=== PATIENT | female | born 1965 | race American Indian/Alaskan Native ===

== ENCOUNTER 2017-09-12 20:03 | Emergency (ER) | payer MEDICARE ==
[2017-09-13] MEDS ORDERED: TYLENOL PO ONE (01:50)
[2017-09-13] MEDS ORDERED: TYLENOL ONE (01:51)
[2017-09-13] MEDS ORDERED: FLEXERIL PO ONE (03:48)
--- NOTE | 2017-09-13 04:08 | Emergency Department Report ---
HPI - General Chief Complaint: Fall Time Seen by Provider: 09/13/17 03:32 - HPI HPI: Patient is a 51-year-old female who presents to ED complaining of headache and right shoulder pain from fall that happened on Tuesday afternoon while she was at [facility]. Patient states she fell and hit her head on a metal object which she can't recall. Patient states she is is that she is has intermittent headache. Patient states she does not think she had loss of consciousness. Patient states she try to break her fall with her right side and is experiencing some right shoulder pain, aching and throbbing in nature, nonradiating. Patient denies fevers/chills/blurry vision/shortness of breath ED Past Medical Hx - Past Medical History Hx Hypertension: Yes Hx Congestive Heart Failure: No Hx Diabetes: No Hx Asthma: No Hx COPD: No Additional medical history: menopause, bilateral hearing loss. pt uses hearing aid - Surgical History Additional Surgical History: uterine ablation 04/2010 - Social History Smoking Status: Never Smoker Substance Use Type: Alcohol - Medications Home Medications: Home Medications Medication Instructions Recorded Confirmed Last Taken Type Aspirin [Aspirin BABY CHEW TAB] 81 mg PO QDAY #30 tab.chew 07/08/17 Unknown Rx Lisinopril [Zestril TAB] 20 mg PO QDAY #30 tablet 07/08/17 Unknown Rx Cyclobenzaprine [Flexeril] 10 mg PO QHS #20 tablet 09/13/17 Unknown Rx Naproxen [Naprosyn] 500 mg PO BID #30 tablet 09/13/17 Unknown Rx ED Review of Systems ROS: Stated complaint: FALL Other details as noted in HPI Constitutional: denies: chills, fever Eyes: denies: eye pain, eye discharge, vision change ENT: denies: ear pain, throat pain, dental pain, hearing loss, congestion Respiratory: denies: cough, shortness of breath, wheezing Cardiovascular: denies: chest pain, palpitations Endocrine: no symptoms reported Gastrointestinal: denies: abdominal pain, nausea, diarrhea, constipation Genitourinary: denies: urgency, dysuria, frequency, discharge Musculoskeletal: arthralgia, myalgia. denies: back pain, joint swelling Skin: denies: rash, lesions Neurological: headache. denies: weakness, numbness, paresthesias, confusion Psychiatric: denies: anxiety, depression Hematological/Lymphatic: denies: easy bleeding, easy bruising Physical Exam - Physical Exam Vital Signs: Vital Signs 09/12/17 22:38 Temperature 97.4 F L Pulse Rate 72 Respiratory 16 Rate Blood Pressure 138/78 O2 Sat by Pulse 98 Oximetry Physical Exam: GENERAL: Alert and oriented x3, no apparent distress, Normal Gait, atraumatic. HEAD: Head is normocephalic and a-traumatic. EYES: Extra ocular muscles are intact. Pupils are equal, round, and reactive to light and accommodation. NECK: Supple. Non edematous, No lymphadenopathy or thyromegaly. No C-spine tenderness LUNGS: Symetrical with respiration, No wheezing, no rales or crackles, CTAB. HEART: S1, S2 present, regular rate and rhythm without murmur, no rubs, no gallops. Non tender to palpation BACK: Full range of motion, no spinal tenderness, nontender to palpation. EXTREMITIES/MUSCULOSKELETAL: No cyanosis, clubbing, rash, lesions or edema. Full ROM bilaterally. UE/LE Pulses 2+ bilaterally. LE and UE 5+ strength bilaterally, right shoulder shows no deformity, non-erythematous, mild tenderness to palpation of the posterior shoulder muscle NEUROLOGIC: The patient is cooperative with no focal neurologic deficits. Cranial nerves II through XII are grossly intact. Normal speech. Normal sensation in bilateral upper and lower extremities, No loss of sensation, SKIN: Warm and dry, No lesions, No ulceration or induration present. ED Course Vital Signs 09/12/17 22:38 Temperature 97.4 F L Pulse Rate 72 Respiratory 16 Rate Blood Pressure 138/78 O2 Sat by Pulse 98 Oximetry ED Medical Decision Making - Radiology Data Radiology results: report reviewed, image reviewed FINAL REPORT EXAM: XR SHOULDER 2+V RT HISTORY: fall/right shoulder pain TECHNIQUE: Three views of the right shoulder were submitted. FINDINGS: The glenohumeral and AC joints appear intact. The subacromial space appears normal. There is no evidence of fracture. IMPRESSION: Within normal limits. Transcribed By: RB Dictated By: STANISLAW ZALDIVAR MD Electronically Authenticated By: STANISLAW ZALDIVAR MD Signed Date/Time: 09/13/17 0018 FINAL REPORT EXAM: CT HEAD/BRAIN WO CON HISTORY: headache/loc after fall TECHNIQUE: Routine axial imaging was obtained of the brain without IV contrast. FINDINGS: The ventricular system is appropriate in size and is symmetric. There is no evidence of acute stroke or hemorrhage. The basal cisterns appear normal. The visualized sinuses are clear. The mastoid air cells are well pneumatized. The calvarium appears intact IMPRESSION: Within normal limits Transcribed By: RB Dictated By: STANISLAW ZALDIVAR MD Electronically Authenticated By: STANISLAW ZALDIVAR MD Signed Date/Time: 09/13/17 0020 - Medical Decision Making 51-year-old female presents status post fall ED course: CT of the head, x-ray of the right shoulder ordered. Gen. just has shows no abnormalities I discussed findings with the patient. I discussed the patient follow up with primary care physician. ED course: Patient received Tylenol and Flexeril in ED. Vital signs are normal patient is in no acute distress Discussed with patient follow-up with primary care physician. Discussed the patient and take medications as prescribed. Patient has no neurological deficit. Patient is alert and oriented 3 and understands all instructions given. Discussed drowsiness effect of Flexeril makes her drowsy and not to operate machinery while taking flexeril Critical care attestation.: If time is entered above; I have spent that time in minutes in the direct care of this critically ill patient, excluding procedure time. ED Disposition Clinical Impression: Myalgia Fall Qualifiers: Encounter type: initial encounter Qualified Code(s): W19.XXXA - Unspecified fall, initial encounter Shoulder pain, right Qualifiers: Chronicity: acute Qualified Code(s): M25.511 - Pain in right shoulder Arthralgia Qualifiers: Joint pain location: shoulder Laterality: right Qualified Code(s): M25.511 - Pain in right shoulder Disposition: - TO HOME OR SELFCARE Is pt being admited?: No Does the pt Need Aspirin: No Condition: Stable Instructions: Fall Prevention (ED), Trigger Point Pain (ED), Musculoskeletal Pain (ED), Heat Pack Application (ED) Additional Instructions: Make sure to follow up with the primary care physician as discussed. Take all your medications as you've been prescribed. If you have any worsening symptoms or develop new symptoms please return to ED immediately. Prescriptions: Cyclobenzaprine [Flexeril] 10 mg PO QHS #20 tablet Naproxen [Naprosyn] 500 mg PO BID #30 tablet Referrals: PRIMARY MD MARNIE [Primary Care Provider] - 3-5 Days [facility] [Outside] - 3-5 Days [facility] [Outside] - 3-5 Days [facility] [Outside] - 3-5 Days Forms: Accompanied Note, Work/School Release Form(ED) Time of Disposition: 04:40
--- NOTE | 2017-09-13 04:21 | XRay Report ---
FINAL REPORT EXAM: XR SHOULDER 2+V RT HISTORY: fall/right shoulder pain TECHNIQUE: Three views of the right shoulder were submitted. FINDINGS: The glenohumeral and AC joints appear intact. The subacromial space appears normal. There is no evidence of fracture. IMPRESSION: Within normal limits.
--- NOTE | 2017-09-13 04:24 | Cat Scan Report ---
FINAL REPORT EXAM: CT HEAD/BRAIN WO CON HISTORY: headache/loc after fall TECHNIQUE: Routine axial imaging was obtained of the brain without IV contrast. FINDINGS: The ventricular system is appropriate in size and is symmetric. There is no evidence of acute stroke or hemorrhage. The basal cisterns appear normal. The visualized sinuses are clear. The mastoid air cells are well pneumatized. The calvarium appears intact IMPRESSION: Within normal limits
[2017-09-13 05:36] VITALS: BP 146/91
== END 2017-09-13 05:05 | disposition home or self-care (01) ==
LOC: ED 20:03
DX: M25.511 Pain in right shoulder (principal); M79.1 Myalgia; I10 Essential (primary) hypertension
CPT/HCPCS: 70450

== ENCOUNTER 2017-11-18 22:26 | Emergency (ER) | payer MEDICARE ==
[2017-11-18] MEDS ORDERED: ASPIRIN PO ONE (22:46)
[2017-11-18 23:15] LABS: Basophils # (Auto) 0.1 K/mm3 (0.0-0.1); Basophils % (Auto) 1.2 % (0.0-1.8); Eosinophils # (Auto) 0.2 K/mm3 (0.0-0.4); Eosinophils % (Auto) 2.2 % (0.0-4.3); Hematocrit 49.3 % (30.3-42.9); Hemoglobin 16.1 gm/dl (10.1-14.3); Lymphocytes # (Auto) 3.5 K/mm3 (1.2-5.4); Lymphocytes % (Auto) 46.7 % (13.4-35.0); Mean Corpuscular HGB Conc 33 % (30-34); Mean Corpuscular Hemoglobin 32 pg (28-32); Mean Corpuscular Volume 99 fl (79-97); Monocytes # (Auto) 0.8 K/mm3 (0.0-0.8); Monocytes % (Auto) 11.1 % (0.0-7.3); Platelet Count 293 K/mm3 (140-440); Red Blood Count 4.98 M/mm3 (3.65-5.03)
[2017-11-18 23:32] LABS: BUN/Creatinine Ratio 17; Blood Urea Nitrogen 15 mg/dL (7-17); Calcium 9.3 mg/dL (8.4-10.2); Hemolysis Index 12
--- NOTE | 2017-11-18 23:42 | XRay Report ---
FINAL REPORT EXAM: XR CHEST ROUTINE 2V HISTORY: SOB and cough TECHNIQUE: 2 views of the chest. PRIORS: None. FINDINGS: The cardiomediastinal silhouette appears normal. The lungs are clear. The bones and soft tissues are unremarkable. IMPRESSION: No evidence of acute cardiopulmonary disease
[2017-11-19] MEDS ORDERED: NORCO 5/325 PO ONE ×2 (02:15→04:01)
--- NOTE | 2017-11-19 02:17 | Emergency Department Report ---
ED Chest Pain HPI - General Chief Complaint: Chest Pain Stated Complaint: CHEST PAIN/HTN/ARM PAIN/ADAMS Time Seen by Provider: 11/19/17 02:09 Source: patient Mode of arrival: Ambulatory Limitations: No Limitations - History of Present Illness Initial Comments: Patient is a 51-year-old [place] female who is presenting with chest pain. Patient states she is has had chest pain or difficulty breathing for the past 2 days. Patient states is worse at night when she is lying flat. Patient states during the day when she is up and about us not gone however she says this as best of 3 out of 10 at worst a 7 out of 10 in severity. Patient states as a heavy sensation and tightness. Patient also states she's had a nonproductive cough the same amount of time. Patient has a history of smoking and hypertension. Patient states it does hurt when she agrees slightly. Patient denies any nausea vomiting diaphoresis abdominal pain at this time. - Related Data Previous Rx's Medication Instructions Recorded Last Taken Type Aspirin [Aspirin BABY CHEW TAB] 81 mg PO QDAY #30 tab.chew 07/08/17 Unknown Rx Lisinopril [Zestril TAB] 20 mg PO QDAY #30 tablet 07/08/17 Unknown Rx Cyclobenzaprine [Flexeril] 10 mg PO QHS #20 tablet 09/13/17 Unknown Rx Naproxen [Naprosyn] 500 mg PO BID #30 tablet 09/13/17 Unknown Rx ALBUTEROL Inhaler [ProAir HFA 2 puff IH QID PRN #1 inhalation 11/19/17 Unknown Rx Inhaler] Azithromycin [Zithromax Z-GLENROY] 250 mg PO DAILY #6 tablet 11/19/17 Unknown Rx HYDROcodone/APAP 5-325 [Massena 1 each PO Q4HR PRN #12 tablet 11/19/17 Unknown Rx 5/325] Ibuprofen [Motrin] 600 mg PO Q8H PRN #20 tablet 11/19/17 Unknown Rx predniSONE [Deltasone] 10 mg PO QDAY #5 tab 11/19/17 Unknown Rx Allergies Allergy/AdvReac Type Severity Reaction Status Date / Time No Known Allergies Allergy Verified 12/29/15 19:15 Heart Score - HEART Score History: Slightly suspicious EKG: Non-specific Age: 45-65 Risk factors: > 3 risk factors or hx of atherosclerotic disease Troponin: < normal limit HEART Score: 4 ED Review of Systems ROS: Stated complaint: CHEST PAIN/HTN/ARM PAIN/ADAMS Other details as noted in HPI Comment: All other systems reviewed and negative ED Past Medical Hx - Past Medical History Hx Hypertension: Yes Hx Congestive Heart Failure: No Hx Diabetes: No Hx Asthma: No Hx COPD: No Additional medical history: menopause, bilateral hearing loss. pt uses hearing aid - Surgical History Additional Surgical History: uterine ablation 04/2010 - Social History Smoking Status: Current Every Day Smoker Substance Use Type: None - Medications Home Medications: Home Medications Medication Instructions Recorded Confirmed Last Taken Type Aspirin [Aspirin BABY CHEW TAB] 81 mg PO QDAY #30 tab.chew 07/08/17 Unknown Rx Lisinopril [Zestril TAB] 20 mg PO QDAY #30 tablet 07/08/17 Unknown Rx Cyclobenzaprine [Flexeril] 10 mg PO QHS #20 tablet 09/13/17 Unknown Rx Naproxen [Naprosyn] 500 mg PO BID #30 tablet 09/13/17 Unknown Rx ALBUTEROL Inhaler [ProAir HFA 2 puff IH QID PRN #1 inhalation 11/19/17 Unknown Rx Inhaler] Azithromycin [Zithromax Z-GLENROY] 250 mg PO DAILY #6 tablet 11/19/17 Unknown Rx HYDROcodone/APAP 5-325 [Massena 1 each PO Q4HR PRN #12 tablet 11/19/17 Unknown Rx 5/325] Ibuprofen [Motrin] 600 mg PO Q8H PRN #20 tablet 11/19/17 Unknown Rx predniSONE [Deltasone] 10 mg PO QDAY #5 tab 11/19/17 Unknown Rx ED Physical Exam - General Limitations: No Limitations General appearance: alert, in no apparent distress - Head Head exam: Present: atraumatic, normocephalic - Eye Eye exam: Present: normal appearance - ENT ENT exam: Present: mucous membranes moist - Neck Neck exam: Present: normal inspection - Respiratory Respiratory exam: Present: normal lung sounds bilaterally. Absent: respiratory distress, wheezes, rales, rhonchi - Cardiovascular Cardiovascular Exam: Present: regular rate, normal rhythm. Absent: systolic murmur, diastolic murmur, rubs, gallop - GI/Abdominal GI/Abdominal exam: Present: soft, normal bowel sounds. Absent: distended, tenderness, guarding - Extremities Exam Extremities exam: Present: normal inspection - Back Exam Back exam: Present: normal inspection - Neurological Exam Neurological exam: Present: alert, oriented X3 - Psychiatric Psychiatric exam: Present: normal affect, normal mood - Skin Skin exam: Present: warm, dry, intact, normal color. Absent: rash ED Course Vital Signs 11/18/17 11/19/17 11/19/17 22:41 01:58 02:00 Temperature 97.6 F Pulse Rate 62 55 L Respiratory 18 25 H Rate Blood Pressure 145/82 130/86 119/85 Blood Pressure [Left] O2 Sat by Pulse 98 97 Oximetry 11/19/17 11/19/17 11/19/17 02:10 02:15 02:20 Temperature 98.1 F Pulse Rate 53 L Respiratory 21 14 21 Rate Blood Pressure 119/85 Blood Pressure 130/86 [Left] O2 Sat by Pulse 98 97 Oximetry 11/19/17 11/19/17 11/19/17 02:29 02:30 02:45 Temperature Pulse Rate 56 L 54 L 51 L Respiratory 25 H 17 Rate Blood Pressure 128/81 128/81 Blood Pressure [Left] O2 Sat by Pulse 91 96 Oximetry 11/19/17 11/19/17 11/19/17 03:00 03:15 03:30 Temperature Pulse Rate 52 L 52 L 49 L Respiratory 24 22 15 Rate Blood Pressure 134/84 134/84 118/80 Blood Pressure [Left] O2 Sat by Pulse 100 94 92 Oximetry ED Medical Decision Making - Lab Data Result diagrams: 11/18/17 22:56 11/18/17 22:56 Lab Results 11/18/17 11/18/17 11/19/17 Range/Units 22:56 22:56 01:45 WBC 7.4 (4.5-11.0) K/mm3 RBC 4.98 (3.65-5.03) M/mm3 Hgb 16.1 H (10.1-14.3) gm/dl Hct 49.3 H (30.3-42.9) % MCV 99 H (79-97) fl MCH 32 (28-32) pg MCHC 33 (30-34) % RDW 15.0 (13.2-15.2) % Plt Count 293 (140-440) K/mm3 Lymph % (Auto) 46.7 H (13.4-35.0) % [place] % (Auto) 11.1 H (0.0-7.3) % Eos % (Auto) 2.2 (0.0-4.3) % Baso % (Auto) 1.2 (0.0-1.8) % Lymph # 3.5 (1.2-5.4) K/mm3 [place] # 0.8 (0.0-0.8) K/mm3 Eos # 0.2 (0.0-0.4) K/mm3 Baso # 0.1 (0.0-0.1) K/mm3 Seg Neutrophils % 38.8 L (40.0-70.0) % Seg Neutrophils # 2.9 (1.8-7.7) K/mm3 D-Dimer (0-234) ng/mlDDU Sodium 139 (137-145) mmol/L Potassium 4.4 (3.6-5.0) mmol/L Chloride 99.5 (98-107) mmol/L Carbon Dioxide 26 (22-30) mmol/L Anion Gap 18 mmol/L BUN 15 (7-17) mg/dL Creatinine 0.9 (0.7-1.2) mg/dL Estimated GFR > 60 ml/min BUN/Creatinine Ratio 17 % Glucose 129 H (65-100) mg/dL Calcium 9.3 (8.4-10.2) mg/dL Troponin T < 0.010 < 0.010 (0.00-0.029) ng/mL 11/19/17 Range/Units 02:29 WBC (4.5-11.0) K/mm3 RBC (3.65-5.03) M/mm3 Hgb (10.1-14.3) gm/dl Hct (30.3-42.9) % MCV (79-97) fl MCH (28-32) pg MCHC (30-34) % RDW (13.2-15.2) % Plt Count (140-440) K/mm3 Lymph % (Auto) (13.4-35.0) % [place] % (Auto) (0.0-7.3) % Eos % (Auto) (0.0-4.3) % Baso % (Auto) (0.0-1.8) % Lymph # (1.2-5.4) K/mm3 [place] # (0.0-0.8) K/mm3 Eos # (0.0-0.4) K/mm3 Baso # (0.0-0.1) K/mm3 Seg Neutrophils % (40.0-70.0) % Seg Neutrophils # (1.8-7.7) K/mm3 D-Dimer 189.04 (0-234) ng/mlDDU Sodium (137-145) mmol/L Potassium (3.6-5.0) mmol/L Chloride (98-107) mmol/L Carbon Dioxide (22-30) mmol/L Anion Gap mmol/L BUN (7-17) mg/dL Creatinine (0.7-1.2) mg/dL Estimated GFR ml/min BUN/Creatinine Ratio % Glucose (65-100) mg/dL Calcium (8.4-10.2) mg/dL Troponin T (0.00-0.029) ng/mL - EKG Data -: EKG Interpreted by Ar - EKG Data Interpretation: other (EKG shows sinus rhythm, rate of 61 axis normal intervals and normal there are T-wave inversions in lead 2V5 and some diffuse T-wave flattening. There is no ST segment elevation or depressions. Interpretation is 2235.) - Radiology Data Radiology results: report reviewed There is no acute process on her chest x-ray - Medical Decision Making Patient has had 2 negative troponins that are both 0. Patient d-dimer is within normal limits. Patient's states chest pains been the same time that her cough is present. Patient is a smoker most likely has a early smoker's bronchitis. Patient be started on meds and discharged home. Critical care attestation.: If time is entered above; I have spent that time in minutes in the direct care of this critically ill patient, excluding procedure time. ED Disposition Clinical Impression: Atypical chest pain, Acute bronchitis Disposition: DC-01 TO HOME OR SELFCARE Is pt being admited?: No Does the pt Need Aspirin: No Condition: Stable Instructions: Chest Pain (ED), Acute Bronchitis (ED) Referrals: IVETTE DRAKE MD [Primary Care Provider] - 3-5 Days
[2017-11-19 03:42] VITALS: BP 118/80
== END 2017-11-19 04:32 | disposition home or self-care (01) ==
LOC: ED 22:26
DX: J20.9 Acute bronchitis, unspecified (principal); I10 Essential (primary) hypertension; F17.200 Nicotine dependence, unspecified, uncomplicated
CPT/HCPCS: 36415; 71046; 80048; 84484; 85025; 85379; 93005; 93010

== ENCOUNTER 2018-02-09 12:17 | Outpatient (CLI) | payer MEDICARE ==
--- NOTE | 2018-02-09 13:30 | Cat Scan Report ---
CT chest with contrast: Cough. Following IV contrast administration and transverse images are obtained through the chest with coronal and sagittal 2-D reformatted images. There is no axillary, hilar, or mediastinal adenopathy appreciated. The central airways are patent and normal in position. No evidence of bronchiectasis. No endobronchial lesion identified. The thoracic aorta is normal in size and contour. The cardiac chambers appear normal. The lungs are clear. No nodule and no infiltrate noted. The pleural surfaces are smooth. Images of the upper abdomen appear normal. Impression: No pathology identified.
== END 2018-02-09 12:18 | disposition home or self-care (01) ==
LOC: CT 12:17
PROVIDERS: ATTEND Nurse Practitioner
DX: R05 Cough (principal); F17.210 Nicotine dependence, cigarettes, uncomplicated; I10 Essential (primary) hypertension; J18.9 Pneumonia, unspecified organism
CPT/HCPCS: 71260; Q9967

== ENCOUNTER 2018-05-24 12:38 | Emergency (ER) | payer MEDICARE ==
[2018-05-24 13:11] VITALS: BP 124/77
[2018-05-24 13:30] LABS: Basophils # (Auto) 0.1 K/mm3 (0.0-0.1); Basophils % (Auto) 1.4 % (0.0-1.8); Eosinophils # (Auto) 0.1 K/mm3 (0.0-0.4); Eosinophils % (Auto) 2.1 % (0.0-4.3); Hematocrit 43.8 % (30.3-42.9); Hemoglobin 15.1 gm/dl (10.1-14.3); Lymphocytes # (Auto) 3.2 K/mm3 (1.2-5.4); Lymphocytes % (Auto) 45.9 % (13.4-35.0); Mean Corpuscular HGB Conc 35 % (30-34); Mean Corpuscular Hemoglobin 33 pg (28-32); Mean Corpuscular Volume 94 fl (79-97); Monocytes # (Auto) 0.7 K/mm3 (0.0-0.8); Monocytes % (Auto) 10.2 % (0.0-7.3); Platelet Count 316 K/mm3 (140-440); Red Blood Count 4.66 M/mm3 (3.65-5.03); Red Cell Distribution Width 14.7 % (13.2-15.2)
[2018-05-24 13:37] LABS: INR 0.94 (0.87-1.13)
[2018-05-24 13:38] LABS: Partial Thromboplastin Time 25.3 Sec. (24.2-36.6)
[2018-05-24 13:50] LABS: BUN/Creatinine Ratio 20; Blood Urea Nitrogen 10 mg/dL (7-17); Calcium 9.3 mg/dL (8.4-10.2); Hemolysis Index 9
--- NOTE | 2018-05-24 17:03 | Emergency Department Report ---
ED General Adult HPI - General Chief complaint: Chest Pain Stated complaint: CHEST PAINS/ARM PAIN Time Seen by Provider: 05/24/18 16:45 Source: patient Mode of arrival: Ambulatory Limitations: No Limitations - History of Present Illness Initial comments: Patient is a 52-year-old female who is presenting with chest pain as well as a cough that is productive of yellow-green sputum. Patient states she's been coughing for approximately 2 weeks however her chest discomfort is been for the last 2 days. Patient states it hurts when she coughs. Patient has mild shortness of breath as well as headache. Patient has some mild nausea but no vomiting or diarrhea. - Related Data Previous Rx's Medication Instructions Recorded Last Taken Type Aspirin [Aspirin BABY CHEW TAB] 81 mg PO QDAY #30 tab.chew 07/08/17 Unknown Rx Lisinopril [Zestril TAB] 20 mg PO QDAY #30 tablet 07/08/17 Unknown Rx Cyclobenzaprine [Flexeril] 10 mg PO QHS #20 tablet 09/13/17 Unknown Rx Naproxen [Naprosyn] 500 mg PO BID #30 tablet 09/13/17 Unknown Rx ALBUTEROL Inhaler (OR & NICU) 2 puff IH QID PRN #1 inhalation 11/19/17 Unknown Rx [ProAir HFA Inhaler] Azithromycin [Zithromax Z-GLENROY] 250 mg PO DAILY #6 tablet 11/19/17 Unknown Rx HYDROcodone/APAP 5-325 [[place] 1 each PO Q4HR PRN #12 tablet 11/19/17 Unknown Rx 5/325] Ibuprofen [Motrin] 600 mg PO Q8H PRN #20 tablet 11/19/17 Unknown Rx predniSONE [Deltasone] 10 mg PO QDAY #5 tab 11/19/17 Unknown Rx ALBUTEROL Inhaler (OR & NICU) 2 puff IH QID PRN #1 inhalation 05/24/18 Unknown Rx [ProAir HFA Inhaler] Benzonatate [Tessalon Perles] 100 mg PO Q8HR #10 capsule 05/24/18 Unknown Rx Doxycycline [Vibramycin CAP] 100 mg PO Q12HR #14 capsule 05/24/18 Unknown Rx HYDROcodone/APAP 5-325 [[place] 1 each PO Q4HR PRN #12 tablet 05/24/18 Unknown Rx 5/325] predniSONE [Deltasone] 20 mg PO QDAY #5 tab 05/24/18 Unknown Rx Allergies Allergy/AdvReac Type Severity Reaction Status Date / Time No Known Allergies Allergy Verified 12/29/15 19:15 ED Review of Systems ROS: Stated complaint: CHEST PAINS/ARM PAIN Other details as noted in HPI Comment: All other systems reviewed and negative ED Past Medical Hx - Past Medical History Previous Medical History?: Yes Hx Hypertension: Yes Hx Congestive Heart Failure: No Hx Diabetes: No Hx Asthma: No Hx COPD: No Additional medical history: menopause, bilateral hearing loss. pt uses hearing aid - Surgical History Past Surgical History?: Yes Additional Surgical History: uterine ablation 04/2010 - Social History Smoking Status: Current Every Day Smoker Substance Use Type: Alcohol - Medications Home Medications: Home Medications Medication Instructions Recorded Confirmed Last Taken Type Aspirin [Aspirin BABY CHEW TAB] 81 mg PO QDAY #30 tab.chew 07/08/17 Unknown Rx Lisinopril [Zestril TAB] 20 mg PO QDAY #30 tablet 07/08/17 Unknown Rx Cyclobenzaprine [Flexeril] 10 mg PO QHS #20 tablet 09/13/17 Unknown Rx Naproxen [Naprosyn] 500 mg PO BID #30 tablet 09/13/17 Unknown Rx ALBUTEROL Inhaler (OR & NICU) 2 puff IH QID PRN #1 inhalation 11/19/17 Unknown Rx [ProAir HFA Inhaler] Azithromycin [Zithromax Z-GLENROY] 250 mg PO DAILY #6 tablet 11/19/17 Unknown Rx HYDROcodone/APAP 5-325 [[place] 1 each PO Q4HR PRN #12 tablet 11/19/17 Unknown Rx 5/325] Ibuprofen [Motrin] 600 mg PO Q8H PRN #20 tablet 11/19/17 Unknown Rx predniSONE [Deltasone] 10 mg PO QDAY #5 tab 11/19/17 Unknown Rx ALBUTEROL Inhaler (OR & NICU) 2 puff IH QID PRN #1 inhalation 05/24/18 Unknown Rx [ProAir HFA Inhaler] Benzonatate [Tessalon Perles] 100 mg PO Q8HR #10 capsule 05/24/18 Unknown Rx Doxycycline [Vibramycin CAP] 100 mg PO Q12HR #14 capsule 05/24/18 Unknown Rx HYDROcodone/APAP 5-325 [[place] 1 each PO Q4HR PRN #12 tablet 05/24/18 Unknown Rx 5/325] predniSONE [Deltasone] 20 mg PO QDAY #5 tab 05/24/18 Unknown Rx ED Physical Exam - General Limitations: No Limitations General appearance: alert, in no apparent distress - Head Head exam: Present: atraumatic, normocephalic - Eye Eye exam: Present: normal appearance - ENT ENT exam: Present: mucous membranes moist - Neck Neck exam: Present: normal inspection - Respiratory Respiratory exam: Present: normal lung sounds bilaterally. Absent: respiratory distress, wheezes, rales, rhonchi - Cardiovascular Cardiovascular Exam: Present: regular rate, normal rhythm. Absent: systolic murmur, diastolic murmur, rubs, gallop - GI/Abdominal GI/Abdominal exam: Present: soft, normal bowel sounds. Absent: distended, tenderness, guarding, rebound - Extremities Exam Extremities exam: Present: normal inspection - Back Exam Back exam: Present: normal inspection - Neurological Exam Neurological exam: Present: alert, oriented X3 - Psychiatric Psychiatric exam: Present: normal affect, normal mood - Skin Skin exam: Present: warm, dry, intact, normal color. Absent: rash ED Course Vital Signs 05/24/18 13:08 Temperature 98.6 F Pulse Rate 61 Respiratory 18 Rate Blood Pressure 124/77 O2 Sat by Pulse 100 Oximetry ED Medical Decision Making - Lab Data Result diagrams: 05/24/18 13:16 05/24/18 13:16 Lab Results 05/24/18 05/24/18 05/24/18 Range/Units 13:16 13:16 13:16 WBC 7.0 (4.5-11.0) K/mm3 RBC 4.66 (3.65-5.03) M/mm3 Hgb 15.1 H (10.1-14.3) gm/dl Hct 43.8 H (30.3-42.9) % MCV 94 (79-97) fl MCH 33 H (28-32) pg MCHC 35 H (30-34) % RDW 14.7 (13.2-15.2) % Plt Count 316 (140-440) K/mm3 Lymph % (Auto) 45.9 H (13.4-35.0) % [place] % (Auto) 10.2 H (0.0-7.3) % Eos % (Auto) 2.1 (0.0-4.3) % Baso % (Auto) 1.4 (0.0-1.8) % Lymph # 3.2 (1.2-5.4) K/mm3 [place] # 0.7 (0.0-0.8) K/mm3 Eos # 0.1 (0.0-0.4) K/mm3 Baso # 0.1 (0.0-0.1) K/mm3 Seg Neutrophils % 40.4 (40.0-70.0) % Seg Neutrophils # 2.8 (1.8-7.7) K/mm3 PT 13.1 (12.2-14.9) Sec. INR 0.94 (0.87-1.13) APTT 25.3 (24.2-36.6) Sec. Sodium 141 (137-145) mmol/L Potassium 3.9 (3.6-5.0) mmol/L Chloride 104.8 (98-107) mmol/L Carbon Dioxide 24 (22-30) mmol/L Anion Gap 16 mmol/L BUN 10 (7-17) mg/dL Creatinine 0.5 L (0.7-1.2) mg/dL Estimated GFR > 60 ml/min BUN/Creatinine Ratio 20 % Glucose 94 (65-100) mg/dL Calcium 9.3 (8.4-10.2) mg/dL Troponin T < 0.010 (0.00-0.029) ng/mL 05/24/18 Range/Units 15:39 WBC (4.5-11.0) K/mm3 RBC (3.65-5.03) M/mm3 Hgb (10.1-14.3) gm/dl Hct (30.3-42.9) % MCV (79-97) fl MCH (28-32) pg MCHC (30-34) % RDW (13.2-15.2) % Plt Count (140-440) K/mm3 Lymph % (Auto) (13.4-35.0) % [place] % (Auto) (0.0-7.3) % Eos % (Auto) (0.0-4.3) % Baso % (Auto) (0.0-1.8) % Lymph # (1.2-5.4) K/mm3 [place] # (0.0-0.8) K/mm3 Eos # (0.0-0.4) K/mm3 Baso # (0.0-0.1) K/mm3 Seg Neutrophils % (40.0-70.0) % Seg Neutrophils # (1.8-7.7) K/mm3 PT (12.2-14.9) Sec. INR (0.87-1.13) APTT (24.2-36.6) Sec. Sodium (137-145) mmol/L Potassium (3.6-5.0) mmol/L Chloride (98-107) mmol/L Carbon Dioxide (22-30) mmol/L Anion Gap mmol/L BUN (7-17) mg/dL Creatinine (0.7-1.2) mg/dL Estimated GFR ml/min BUN/Creatinine Ratio % Glucose (65-100) mg/dL Calcium (8.4-10.2) mg/dL Troponin T < 0.010 (0.00-0.029) ng/mL - EKG Data -: EKG Interpreted by Me - EKG Data 05/24/18 17:01 EKG performed via nurse protocol shows sinus bradycardia rate of 58 no axis normal and slight prolonged QT for the animals. Patient's has no ST segment elevations or depressions. Patient does have nonspecific T-wave changes. - Medical Decision Making Because the patient mentioned chest pain she was chest pain protocol via nursing staff. Patient's positive negative EKG shows some nonspecific changes. Patient's chest pain secondary to her cough. Patient is a smoker and we did discuss smoking cessation. Patient to be treated for bronchitis Critical care attestation.: If time is entered above; I have spent that time in minutes in the direct care of this critically ill patient, excluding procedure time. ED Disposition Clinical Impression: Acute bronchitis Qualifiers: Bronchitis organism: unspecified organism Qualified Code(s): J20.9 - Acute bronchitis, unspecified Disposition: DC-01 TO HOME OR SELFCARE Is pt being admited?: No Does the pt Need Aspirin: No Condition: Stable Instructions: Acute Bronchitis (ED) Referrals: PRIMARY CARE, [Primary Care Provider] - 3-5 Days Time of Disposition: 17:03
== END 2018-05-24 17:10 | disposition home or self-care (01) ==
LOC: ED 12:38
DX: J20.9 Acute bronchitis, unspecified (principal); I10 Essential (primary) hypertension; F17.200 Nicotine dependence, unspecified, uncomplicated
CPT/HCPCS: 36415; 80048; 84484; 85025; 85610; 85730; 93005; 93010

== ENCOUNTER 2018-11-08 09:35 | Outpatient (CLI) | payer MEDICARE ==
[2018-11-08 11:46] LABS: Alanine Aminotransferase 31 units/L (7-56); BUN/Creatinine Ratio 20; Blood Urea Nitrogen 12 mg/dL (7-17); Calcium 9.4 mg/dL (8.4-10.2); Chol/HDL Ratio 2.39 %; HDL Cholesterol 58 mg/dL (40-59); Hemolysis Index 6; LDL Cholesterol,Direct 78 mg/dL (50-130)
== END 2018-11-08 09:36 | disposition home or self-care (01) ==
LOC: LAB 09:35
PROVIDERS: ATTEND Internal Medicine
DX: I10 Essential (primary) hypertension (principal); E66.01 Morbid (severe) obesity due to excess calories; R73.9 Hyperglycemia, unspecified; R31.9 Hematuria, unspecified; Z87.891 Personal history of nicotine dependence
CPT/HCPCS: 36415; 80053; 80061; 82306; 82607; 83036

== ENCOUNTER 2019-01-08 20:24 | Observation (INO) | payer MEDICARE ==
--- NOTE | 2019-01-08 20:33 | Emergency Department Report ---
Blank Doc - Documentation Documentation: This is a 53-year-old female that presents with chest pain and SOB. This initial assessment/diagnostic orders/clinical plan/treatment(s) is/are subject to change based on patient's health status, clinical progression and re- assessment by fellow clinical providers in the ED. Further treatment and workup at subsequent clinical providers discretion. Patient/guardians urged not to elope from the ED as their condition may be serious if not clinically assessed and managed. Initial orders include: 1- Patient sent to MAIN ED for further evaluation and treatment 2- labs 3- CXR 4- EKG
[2019-01-08 21:09] LABS: Basophils # (Auto) 0.1 K/mm3 (0.0-0.1); Basophils % (Auto) 1.2 % (0.0-1.8); Eosinophils # (Auto) 0.1 K/mm3 (0.0-0.4); Eosinophils % (Auto) 0.8 % (0.0-4.3); Hematocrit 48.5 % (30.3-42.9); Hemoglobin 16.6 gm/dl (10.1-14.3); Lymphocytes % (Auto) 35.1 % (13.4-35.0); Mean Corpuscular HGB Conc 34 % (30-34); Mean Corpuscular Volume 97 fl (79-97); Monocytes % (Auto) 11.4 % (0.0-7.3); Platelet Count 264 K/mm3 (140-440); Red Blood Count 5.01 M/mm3 (3.65-5.03); Red Cell Distribution Width 14.9 % (13.2-15.2)
[2019-01-08 21:18] LABS: INR 0.91 (0.87-1.13)
[2019-01-08 21:36] LABS: BUN/Creatinine Ratio 18; Blood Urea Nitrogen 11 mg/dL (7-17); Calcium 10.3 mg/dL (8.4-10.2); Hemolysis Index 64
[2019-01-08] MEDS ORDERED: ZOFRAN IV ONE (22:37)
[2019-01-08] MEDS ORDERED: ASPIRIN PO ONE (22:37)
[2019-01-08] MEDS ORDERED: SUBLIMAZE IV ONE (22:37)
[2019-01-08] MEDS ORDERED: NITRO-BID 2% TP ONE (22:37)
--- NOTE | 2019-01-08 22:42 | Emergency Department Report ---
HPI - General Chief Complaint: Chest Pain Time Seen by Provider: 01/08/19 20:32 - HPI HPI: Room 24 The patient is a 53-year-old female presenting with chief complaint of chest pain. Patient states her symptoms began this evening at approximately 19:00 s ubsternal chest pain described as sharp in nature. The patient states her chest pain was initially constant but has now become intermittent. The patient states the pain radiates to her left upper extremity that and left lower extremity. Patient states she's had shortness of breath and diaphoresis with her pain but denies nausea/vomiting. The patient currently gets her pain score of 6/10. The patient states her last stress test occurred in 2018 she's never had a cardiac catheterization Location: [See above] Duration: [See above] Quality: Sharp Severity: 610 Modifying factors: [see above] Context: [see above] Mode of transportation: [not driving] ED Past Medical Hx - Past Medical History Hx Hypertension: Yes Additional medical history: menopause, bilateral hearing loss. pt uses hearing aid - Surgical History Additional Surgical History: uterine ablation 04/2010 - Family History Family history: no significant - Social History Smoking Status: Current Every Day Smoker (1/2 pack per day) Substance Use Type: None (denies illicit drug use), Alcohol (occasional) - Medications Home Medications: Home Medications Medication Instructions Recorded Confirmed Last Taken Type Aspirin [Aspirin BABY CHEW TAB] 81 mg PO QDAY #30 tab.chew 07/08/17 Unknown Rx Lisinopril [Zestril TAB] 20 mg PO QDAY #30 tablet 07/08/17 Unknown Rx Cyclobenzaprine [Flexeril] 10 mg PO QHS #20 tablet 09/13/17 Unknown Rx Naproxen [Naprosyn] 500 mg PO BID #30 tablet 09/13/17 Unknown Rx ALBUTEROL Inhaler (OR & NICU) 2 puff IH QID PRN #1 inhalation 11/19/17 Unknown Rx [ProAir HFA Inhaler] Azithromycin [Zithromax Z-GLENROY] 250 mg PO DAILY #6 tablet 11/19/17 Unknown Rx HYDROcodone/APAP 5-325 [[place] 1 each PO Q4HR PRN #12 tablet 11/19/17 Unknown Rx 5/325] Ibuprofen [Motrin] 600 mg PO Q8H PRN #20 tablet 03/24/18 Unknown Rx predniSONE [Deltasone] 10 mg PO QDAY #5 tab 11/19/17 Unknown Rx ALBUTEROL Inhaler (OR & NICU) 2 puff IH QID PRN #1 inhalation 05/24/18 Unknown Rx [ProAir HFA Inhaler] Benzonatate [Tessalon Perles] 100 mg PO Q8HR #10 capsule 05/24/18 Unknown Rx DOXYCYCLINE Hyclate [Vibramycin 100 mg PO Q12HR #14 capsule 05/24/18 Unknown Rx CAP] HYDROcodone/APAP 5-325 [[place] 1 each PO Q4HR PRN #12 tablet 05/24/18 Unknown Rx 5/325] predniSONE [Deltasone] 20 mg PO QDAY #5 tab 05/24/18 Unknown Rx ED Review of Systems ROS: Stated complaint: CHEST PAIN Other details as noted in HPI Constitutional: diaphoresis Eyes: denies: eye pain ENT: denies: throat pain Respiratory: shortness of breath Cardiovascular: chest pain Endocrine: no symptoms reported Gastrointestinal: denies: nausea, vomiting Genitourinary: denies: dysuria Musculoskeletal: back pain Neurological: denies: headache Physical Exam - Physical Exam Vital Signs: Vital Signs 01/08/19 20:26 Temperature 97.5 F L Pulse Rate 78 Respiratory 22 Rate Blood Pressure 174/102 [Right] O2 Sat by Pulse 100 Oximetry Physical Exam: GENERAL: The patient is well-developed well-nourished female lying on stretcher not appearing to be in acute distress. [] HEENT: Normocephalic. Atraumatic. Extraocular motions are intact. Patient has moist mucous membranes. NECK: Supple. Trachea midline CHEST/LUNGS: Clear to auscultation. There is no respiratory distress noted. HEART/CARDIOVASCULAR: Regular. There is no tachycardia. There is no gallop rub or murmur. 2+ radial pulses bilaterally ABDOMEN: Abdomen is soft, nontender. Patient has normal bowel sounds. There is no abdominal distention. SKIN: There is no rash. There is no edema. There is no diaphoresis. NEURO: The patient is awake, alert, and oriented. The patient is cooperative. The patient has no focal neurologic deficits. The patient has normal speech MUSCULOSKELETAL: There is no evidence of acute injury. ED Course Vital Signs 01/08/19 20:26 Temperature 97.5 F L Pulse Rate 78 Respiratory 22 Rate Blood Pressure 174/102 [Right] O2 Sat by Pulse 100 Oximetry ED Medical Decision Making - Lab Data Result diagrams: 01/08/19 20:37 01/08/19 20:37 Laboratory Tests 01/08/19 01/08/19 01/08/19 20:37 20:37 20:37 WBC 8.4 RBC 5.01 Hgb 16.6 H Hct 48.5 H MCV 97 MCH 33 H MCHC 34 RDW 14.9 Plt Count 264 Lymph % (Auto) 35.1 H [place] % (Auto) 11.4 H Eos % (Auto) 0.8 Baso % (Auto) 1.2 Lymph # 3.0 [place] # 1.0 H Eos # 0.1 Baso # 0.1 Seg Neutrophils % 51.5 Seg Neutrophils # 4.3 PT 12.8 INR 0.91 APTT 28.0 D-Dimer Sodium 137 Potassium 4.5 Chloride 99.0 Carbon Dioxide 22 Anion Gap 21 BUN 11 Creatinine 0.6 L Estimated GFR > 60 BUN/Creatinine Ratio 18 Glucose 118 H Calcium 10.3 H Troponin T < 0.010 Urine Opiates Screen Urine Methadone Screen Ur Barbiturates Screen Ur Phencyclidine Scrn Ur Amphetamines Screen U Benzodiazepines Scrn Urine Cocaine Screen U Marijuana (THC) Screen Drugs of Abuse Note 01/08/19 01/08/19 20:37 22:29 WBC RBC Hgb Hct MCV MCH MCHC RDW Plt Count Lymph % (Auto) [place] % (Auto) Eos % (Auto) Baso % (Auto) Lymph # [place] # Eos # Baso # Seg Neutrophils % Seg Neutrophils # PT INR APTT D-Dimer 224.5 Sodium Potassium Chloride Carbon Dioxide Anion Gap BUN Creatinine Estimated GFR BUN/Creatinine Ratio Glucose Calcium Troponin T Urine Opiates Screen Presumptive negative Urine Methadone Screen Presumptive negative Ur Barbiturates Screen Presumptive negative Ur Phencyclidine Scrn Presumptive negative Ur Amphetamines Screen Presumptive negative U Benzodiazepines Scrn Presumptive negative Urine Cocaine Screen Presumptive negative U Marijuana (THC) Screen Presumptive negative Drugs of Abuse Note Disclamer - EKG Data -: EKG Interpreted by Me EKG shows normal: sinus rhythm Rate: normal - EKG Data When compared to previous EKG there are: no significant change Interpretation: unchanged when compared t (05/24/2018) - Radiology Data Radiology results: image reviewed (chest x-ray) interpreted by me: Chest x-ray-no focal infiltrates, no pneumothorax - Differential Diagnosis ACS, pericarditis, GERD, PE Critical care attestation.: If time is entered above; I have spent that time in minutes in the direct care of this critically ill patient, excluding procedure time. ED Disposition Clinical Impression: Chest pain Disposition: DC-09 OP ADMIT IP TO THIS HOSP Is pt being admited?: Yes Does the pt Need Aspirin: Yes Condition: Fair Instructions: Chest Pain (ED) Time of Disposition: 23:15 (hospitalist paged (Dr Dejesus))
[2019-01-08 22:44] LABS: Amphetamine Screen,Urine PRESUMPTIVE NEGATIVE; Benzodiazepines Screen,Urine PRESUMPTIVE NEGATIVE; Cannabinoid Screen,Urine PRESUMPTIVE NEGATIVE; Cocaine Screen,Urine PRESUMPTIVE NEGATIVE; Methadone Screen,Urine PRESUMPTIVE NEGATIVE; Opiate Screen,Urine PRESUMPTIVE NEGATIVE
--- NOTE | 2019-01-08 23:07 | XRay Report ---
PROCEDURE: XR CHEST ROUTINE 2V TECHNIQUE: PA and lateral chest radiographs were obtained. HISTORY: Chest Pain COMPARISONS: November 18, 2017. FINDINGS: Heart: Normal. Mediastinum/Vessels: Normal. Lungs/Pleural space: Normal. Bony thorax: No acute osseous abnormality. IMPRESSION: Normal examination. This document is electronically signed by Jeancarlos Jimenez MD., Jan 08 2019 11:04:50 PM ET
[2019-01-08] MEDS ORDERED: APRESOLINE IV PRN (23:53)
[2019-01-08] MEDS ORDERED: ZOFRAN IV PRN (23:53)
[2019-01-08] MEDS ORDERED: MORPHINE IV PRN (23:53)
[2019-01-08] MEDS ORDERED: TYLENOL PO PRN (23:53)
[2019-01-08] MEDS ORDERED: SODIUM CHLORIDE FLUSH SYRINGE 10 ML IV PRN ×2 (23:53)
--- NOTE | 2019-01-09 00:36 | History and Physical Report ---
History of Present Illness Date of examination: 01/09/19 Date of admission: 01/09/2019 Chief complaint: Chest pain History of present illness: Patient is a 53-year-old female with PMHx of hypertension, bilateral hearing loss, obesity who presents to the ER with complaints of chest pain x1day. Patient states that the pain started tonight, it is located in the left substernal area, associated with SOB and radiates to the left arm causing numbness and tingling. Patient states that 2 weeks ago she had a similar chest pain, since then the pain has been coming on and off causing tingling in her whole body. Patient states that she comes to the ER tonight because of the pain was more intense and it was really concerning, which prompt her to come to the ER for evaluation. Patient states that a few years ago she had a stress test, she was supposed to have a heart catheterization but the procedure wasn't done, she never followed up with cardiology. Patient reported an intense family history of chest pain and heart disease, her grand mother and her mother of heart disease, and 2 sisters of cancer. Patient admits to smoking 5-7 cigarettes a day and drinks alcohol in the weekend. Patient was evaluated in the ER, her EKG showed no STEMI criteria, her first cardiac enzymes were negative, patient is admitted for further evaluation of the chest. T Past History Past Medical History: hypertension, other (obesity, cigarette smoking disorder, EtOH use) Past Surgical History: No surgical history Social history: no significant social history Medications and Allergies Allergies Allergy/AdvReac Type Severity Reaction Status Date / Time No Known Allergies Allergy Verified 12/29/15 19:15 Home Medications Medication Instructions Recorded Confirmed Last Taken Type Aspirin [Aspirin BABY CHEW TAB] 81 mg PO QDAY #30 tab.chew 07/08/17 01/08/19 Unknown Rx Lisinopril [Zestril TAB] 20 mg PO QDAY #30 tablet 07/08/17 01/08/19 Unknown Rx Cyclobenzaprine [Flexeril] 10 mg PO QHS #20 tablet 09/13/17 01/08/19 Unknown Rx Naproxen [Naprosyn] 500 mg PO BID #30 tablet 09/13/17 01/08/19 Unknown Rx ALBUTEROL Inhaler (OR & NICU) 2 puff IH QID PRN #1 inhalation 11/19/17 01/08/19 Unknown Rx [ProAir HFA Inhaler] Azithromycin [Zithromax Z-GLENROY] 250 mg PO DAILY #6 tablet 11/19/17 01/08/19 Unknown Rx HYDROcodone/APAP 5-325 [[place] 1 each PO Q4HR PRN #12 tablet 11/19/17 01/08/19 Unknown Rx 5/325] Ibuprofen [Motrin] 600 mg PO Q8H PRN #20 tablet 11/19/17 01/08/19 Unknown Rx predniSONE [Deltasone] 10 mg PO QDAY #5 tab 11/19/17 01/08/19 Unknown Rx ALBUTEROL Inhaler (OR & NICU) 2 puff IH QID PRN #1 inhalation 05/24/18 01/08/19 Unknown Rx [ProAir HFA Inhaler] Benzonatate [Tessalon Perles] 100 mg PO Q8HR #10 capsule 05/24/18 01/08/19 Unknown Rx DOXYCYCLINE Hyclate [Vibramycin 100 mg PO Q12HR #14 capsule 05/24/18 01/08/19 Unknown Rx CAP] HYDROcodone/APAP 5-325 [[place] 1 each PO Q4HR PRN #12 tablet 05/24/18 01/08/19 Unknown Rx 5/325] predniSONE [Deltasone] 20 mg PO QDAY #5 tab 05/24/18 01/08/19 Unknown Rx Active Meds: Active Medications Acetaminophen (Tylenol) 650 mg PO Q4H PRN PRN Reason: Pain MILD(1-3)/Fever >100.5/ADAMS Docusate Sodium (Colace) 100 mg PO BID KELLY Hydralazine HCl (Apresoline) 10 mg IV Q6HR PRN PRN Reason: FOR SBP > target Morphine Sulfate (Morphine) 2 mg IV Q4H PRN PRN Reason: Pain, Moderate (4-6) Ondansetron HCl (Zofran) 4 mg IV Q8H PRN PRN Reason: Nausea And Vomiting Sodium Chloride (Sodium Chloride Flush Syringe 10 Ml) 10 ml IV BID KELLY Sodium Chloride (Sodium Chloride Flush Syringe 10 Ml) 10 ml IV PRN PRN PRN Reason: LINE FLUSH Sodium Chloride (Sodium Chloride Flush Syringe 10 Ml) 10 ml IV PRN PRN PRN Reason: LINE FLUSH Review of Systems Cardiovascular: palpitations Exam - Constitutional Vitals: Temp Pulse Resp BP Pulse Ox 98.1 F 69 19 133/83 100 01/08/19 23:15 01/08/19 23:15 01/08/19 23:53 01/08/19 23:15 01/08/19 23:53 General appearance: Present: no acute distress - EENT Eyes: Present: EOM intact ENT: hearing intact - Neck Neck: Present: normal ROM - Respiratory Respiratory effort: normal Respiratory: right: CTA - Cardiovascular Rhythm: regular Heart Sounds: Present: S1 & S2 - Extremities Extremities: no ischemia Extremity abnormal: edema Peripheral Pulses: within normal limits - Abdominal General gastrointestinal: Present: deferred Female genitourinary: Present: deferred - Musculoskeletal Musculoskeletal: strength equal bilaterally - Psychiatric Psychiatric: cooperative - Neurologic Neurologic: moves all extremities Results - Labs CBC & Chem 7: 01/09/19 00:47 01/09/19 00:47 Labs: Laboratory Last Values WBC 8.4 K/mm3 (4.5-11.0) 01/08/19 20:37 RBC 5.01 M/mm3 (3.65-5.03) 01/08/19 20:37 Hgb 16.6 gm/dl (10.1-14.3) H 01/08/19 20:37 Hct 48.5 % (30.3-42.9) H 01/08/19 20:37 MCV 97 fl (79-97) 01/08/19 20:37 MCH 33 pg (28-32) H 01/08/19 20:37 MCHC 34 % (30-34) 01/08/19 20:37 RDW 14.9 % (13.2-15.2) 01/08/19 20:37 Plt Count 264 K/mm3 (140-440) 01/08/19 20:37 Lymph % (Auto) 35.1 % (13.4-35.0) H 01/08/19 20:37 [place] % (Auto) 11.4 % (0.0-7.3) H 01/08/19 20:37 Eos % (Auto) 0.8 % (0.0-4.3) 01/08/19 20:37 Baso % (Auto) 1.2 % (0.0-1.8) 01/08/19 20:37 Lymph # 3.0 K/mm3 (1.2-5.4) 01/08/19 20:37 [place] # 1.0 K/mm3 (0.0-0.8) H 01/08/19 20:37 Eos # 0.1 K/mm3 (0.0-0.4) 01/08/19 20:37 Baso # 0.1 K/mm3 (0.0-0.1) 01/08/19 20:37 Seg Neutrophils % 51.5 % (40.0-70.0) 01/08/19 20:37 Seg Neutrophils # 4.3 K/mm3 (1.8-7.7) 01/08/19 20:37 PT 12.8 Sec. (12.2-14.9) 01/08/19 20:37 INR 0.91 (0.87-1.13) 01/08/19 20:37 APTT 28.0 Sec. (24.2-36.6) 01/08/19 20:37 224.5 ng/mlDDU (0-234) 01/08/19 20:37 Sodium 137 mmol/L (137-145) 01/08/19 20:37 Potassium 4.5 mmol/L (3.6-5.0) 01/08/19 20:37 Chloride 99.0 mmol/L (98-107) 01/08/19 20:37 Carbon Dioxide 22 mmol/L (22-30) 01/08/19 20:37 21 mmol/L 01/08/19 20:37 BUN 11 mg/dL (7-17) 01/08/19 20:37 0.6 mg/dL (0.7-1.2) L 01/08/19 20:37 Estimated GFR > 60 ml/min 01/08/19 20:37 18 % 01/08/19 20:37 Glucose 118 mg/dL (65-100) H 01/08/19 20:37 Calcium 10.3 mg/dL (8.4-10.2) H 01/08/19 20:37 < 0.010 ng/mL (0.00-0.029) 01/08/19 23:07 Presumptive negative 01/08/19 22:29 Presumptive negative 01/08/19 22:29 Ur Barbiturates Screen Presumptive negative 01/08/19 22:29 Ur Phencyclidine Scrn Presumptive negative 01/08/19 22:29 Ur Amphetamines Screen Presumptive negative 01/08/19 22:29 U Benzodiazepines Scrn Presumptive negative 01/08/19 22:29 Presumptive negative 01/08/19 22:29 U Marijuana (THC) Screen Presumptive negative 01/08/19 22:29 Disclamer 01/08/19 22:29 Assessment and Plan Assessment and plan: 1. Chest pain rule out ACS 2. Hypotension 3. Morbid obesity 4. Tobacco use disorder 5. Alcohol use disorder [facility] Consult cardiology for eval in am Continue CE q6hr x 2 more Monitor cardiac status/vital signs Resume home meds Keep NPO until seen by cardiology Plan of care d/w pt, voiced understading Advance Directives: Yes VTE prophylaxis?: Mechanical Plan of care discussed with patient/family: Yes
[2019-01-09 01:06] LABS: Basophils # (Auto) 0.1 K/mm3 (0.0-0.1); Basophils % (Auto) 1.2 % (0.0-1.8); Eosinophils # (Auto) 0.1 K/mm3 (0.0-0.4); Eosinophils % (Auto) 0.7 % (0.0-4.3); Hematocrit 45.7 % (30.3-42.9); Hemoglobin 16.1 gm/dl (10.1-14.3); Lymphocytes # (Auto) 2.4 K/mm3 (1.2-5.4); Lymphocytes % (Auto) 32.5 % (13.4-35.0); Mean Corpuscular HGB Conc 35 % (30-34); Mean Corpuscular Volume 96 fl (79-97); Monocytes # (Auto) 0.8 K/mm3 (0.0-0.8); Monocytes % (Auto) 10.3 % (0.0-7.3); Platelet Count 247 K/mm3 (140-440); Red Blood Count 4.75 M/mm3 (3.65-5.03); Red Cell Distribution Width 15.1 % (13.2-15.2)
[2019-01-09 01:27] LABS: BUN/Creatinine Ratio 18; Blood Urea Nitrogen 11 mg/dL (7-17); Calcium 9.8 mg/dL (8.4-10.2); Hemolysis Index 3
[2019-01-09 01:38] LABS: Chol/HDL Ratio 2.24 %
[2019-01-09] MEDS ORDERED: LEXISCAN IV ONE (09:41)
[2019-01-09] MEDS ORDERED: COLACE PO SCH (10:00)
[2019-01-09] MEDS ORDERED: HABITROL TD SCH (10:00)
[2019-01-09] MEDS ORDERED: LOPRESSOR PO SCH (10:00)
[2019-01-09] MEDS ORDERED: ECOTRIN PO SCH (10:00)
[2019-01-09] MEDS ORDERED: SODIUM CHLORIDE FLUSH SYRINGE 10 ML IV SCH (10:00)
[2019-01-09 11:15] VITALS: BP 126/83
--- NOTE | 2019-01-09 11:15 | Discharge Summary ---
Providers - Providers Date of Admission: 01/09/19 00:25 Attending physician: GREG SAL MD 01/09/19 Consult to Cardiac Rehabilitation [CONS] Routine Reason For Exam: Phase I 01/09/19 01:34 Consult to Physician [CONS] Routine Comment: Leslie aware of patient Consulting Provider: GONZALES FISCHER Physician Instructions: Reason For Exam: chest pain Primary care physician: [employer] Hospitalization Reason for admission: chest pain Condition: Stable Hospital course: Patient is a 53-year-old female with PMHx of hypertension, bilateral hearing loss, obesity who presents to the ER with complaints of chest pain x1day. Patient states that the pain started tonight, it is located in the left substernal area, associated with SOB and radiates to the left arm causing numbness and tingling. Patient states that 2 weeks ago she had a similar chest pain, since then the pain has been coming on and off causing tingling in her whole body. Patient states that she comes to the ER tonight because of the pain was more intense and it was really concerning, which prompt her to come to the ER for evaluation. Patient states that a few years ago she had a stress test, she was supposed to have a heart catheterization but the procedure wasn't done, she never followed up with cardiology. Patient reported an intense family history of chest pain and heart disease, her grand mother and her mother of heart disease, and 2 sisters of cancer. Patient admits to smoking 5-7 cigarettes a day and drinks alcohol in the weekend. Patient was evaluated in the ER, her EKG showed no STEMI criteria, her first cardiac enzymes were negative, patient is admitted for further evaluation of the chest. Patient proceeded to have stress test which was negative. cardiology saw the patient and stated that the pain was pleuritic with underlying GERD. 1. Chest pain rsecondary to GERD and costocondritis 2. Hypotension 3. Morbid obesity 4. Tobacco use disorder 5. Alcohol use disorder Disposition: DC-01 TO HOME OR SELFCARE Time spent for discharge: 35 mins Core Measure Documentation - Palliative Care Palliative Care/ Comfort Measures: Not Applicable - Core Measures Any of the following diagnoses?: none Exam - Constitutional Vitals: Temp Pulse Resp BP Pulse Ox 98.1 F 53 L 15 117/84 95 01/08/19 23:15 01/09/19 06:00 01/09/19 06:00 01/09/19 06:00 01/09/19 06:00 General appearance: Present: no acute distress, well-nourished - EENT Eyes: Present: PERRL ENT: hearing intact - Neck Neck: Present: supple, normal ROM - Respiratory Respiratory effort: normal Respiratory: bilateral: CTA - Cardiovascular Rhythm: regular Heart Sounds: Present: S1 & S2. Absent: systolic murmur, diastolic murmur - Extremities Extremities: no ischemia, pulses intact, pulses symmetrical, No edema, normal temperature, normal color, Full ROM Peripheral Pulses: within normal limits - Abdominal General gastrointestinal: Present: soft, non-tender, non-distended, normal bowel sounds - Integumentary Integumentary: Present: clear, warm, dry - Musculoskeletal Musculoskeletal: strength equal bilaterally - Psychiatric Psychiatric: appropriate mood/affect, intact judgment & insight - Neurologic Neurologic: CNII-XII intact, moves all extremities - Allied Health Allied health notes reviewed: nursing Plan Activity: advance as tolerated, fall precautions Diet: low fat Special Instructions: record daily weights Additional Instructions: Recommend Ouptient GI eval if peristent pain. Follow up with: PRIMARY CARE, [Primary Care Provider] - 7 Days Prescriptions: Pantoprazole [Protonix] 40 mg PO QDAY #30 tablet
--- NOTE | 2019-01-09 11:24 | Consultation ---
History of Present Illness Consult date: 01/09/19 Requesting physician: KENNY LOAIZA Consult reason: chest pain History of present illness: The pt is a 53 YO female with a past medical history of HTN. She presented with complaints of chest pain for 5 days prior to arrival. She describes her chest pain as an intermittent right and left sided pain which is sometimes aggravated by deep inspiration. She also reports some exertional dyspnea over the past several days. She denies any palpitations, n/v, diaphoresis, dizziness or syncope. She denies any prior cardiac issues. Past History Past Medical History: hypertension Past Surgical History: Other (uterine fibroid removal) Social history: no significant social history. denies: smoking, alcohol abuse, prescription drug abuse Medications and Allergies Allergies Allergy/AdvReac Type Severity Reaction Status Date / Time No Known Allergies Allergy Verified 12/29/15 19:15 Home Medications Medication Instructions Recorded Confirmed Last Taken Type Aspirin [Aspirin BABY CHEW TAB] 81 mg PO QDAY #30 tab.chew 07/08/17 01/08/19 Unknown Rx Lisinopril [Zestril TAB] 20 mg PO QDAY #30 tablet 07/08/17 01/08/19 Unknown Rx Cyclobenzaprine [Flexeril 10 MG 10 mg PO QHS #20 tablet 09/13/17 01/08/19 Unknown Rx TAB] ALBUTEROL Inhaler (OR & NICU) 2 puff IH QID PRN #1 inhalation 11/19/17 01/08/19 Unknown Rx [ProAir HFA Inhaler] Azithromycin [Zithromax Z-GLENROY] 250 mg PO DAILY #6 tablet 11/19/17 01/08/19 Unknown Rx HYDROcodone/APAP 5-325 [[place] 1 each PO Q4HR PRN #12 tablet 11/19/17 01/08/19 Unknown Rx 5-325 mg TAB] predniSONE [Deltasone] 10 mg PO QDAY #5 tab 11/19/17 01/08/19 Unknown Rx ALBUTEROL Inhaler (OR & NICU) 2 puff IH QID PRN #1 inhalation 05/24/18 01/08/19 Unknown Rx [ProAir HFA Inhaler] Benzonatate [Tessalon Perles] 100 mg PO Q8HR #10 capsule 05/24/18 01/08/19 Unknown Rx DOXYCYCLINE Hyclate [Vibramycin 100 mg PO Q12HR #14 capsule 05/24/18 01/08/19 Unknown Rx CAP] Pantoprazole [Protonix] 40 mg PO QDAY #30 tablet 01/09/19 Unknown Rx Active Meds: Active Medications Acetaminophen (Tylenol) 650 mg PO Q4H PRN PRN Reason: Pain MILD(1-3)/Fever >100.5/ADAMS Aspirin (Ecotrin) 325 mg PO QDAY [facility] Atorvastatin Calcium (Lipitor) 20 mg PO QHS [facility] Docusate Sodium (Colace) 100 mg PO BID [facility] Hydralazine HCl (Apresoline) 10 mg IV Q6HR PRN PRN Reason: FOR SBP > target Metoprolol Tartrate (Lopressor) 25 mg PO BID [facility] Morphine Sulfate (Morphine) 2 mg IV Q4H PRN PRN Reason: Pain, Moderate (4-6) Nicotine (Habitrol) 21 mg TD QDAY [facility] Ondansetron HCl (Zofran) 4 mg IV Q8H PRN PRN Reason: Nausea And Vomiting Sodium Chloride (Sodium Chloride Flush Syringe 10 Ml) 10 ml IV BID [facility] Sodium Chloride (Sodium Chloride Flush Syringe 10 Ml) 10 ml IV PRN PRN PRN Reason: LINE FLUSH Review of Systems Constitutional: no weight loss, no weight gain, no fever, no chills, no sweats Ears, nose, mouth and throat: no ear pain, no nose pain, no sinus pressure, no sinus pain Cardiovascular: chest pain, high blood pressure, no orthopnea, no palpitations, no rapid/irregular heart beat, no edema, no syncope, no lightheadedness, no shortness of breath, no dyspnea on exertion, no leg edema Respiratory: pain on inspiration, no cough, no shortness of breath, no dyspnea on exertion, no congestion, no wheezing Gastrointestinal: no abdominal pain, no nausea, no vomiting, no diarrhea, no constipation, no change in bowel habits Genitourinary Female: no pelvic pain, no flank pain, no dysuria, no urinary frequency, no urgency Musculoskeletal: no neck stiffness, no neck pain, no shooting arm pain, no arm numbness/tingling, no low back pain, no shooting leg pain Integumentary: no rash, no pruritis, no redness, no sores, no wounds Neurological: no head injury, no paralysis, no weakness, no parathesias, no numbness, no tingling, no seizures, no syncope Psychiatric: no anxiety Endocrine: no cold intolerance, no heat intolerance Hematologic/Lymphatic: no easy bruising, no easy bleeding Allergic/Immunologic: no urticaria, no wheezing Physical Examination Vital Signs Temp Pulse Resp BP Pulse Ox 97.5 F L 78 22 174/102 100 01/08/19 20:26 01/08/19 20:26 01/08/19 20:26 01/08/19 20:26 01/08/19 20:26 General appearance: no acute distress HEENT: Positive: PERRL, Normocephaly, Mucus Membranes Moist Neck: Positive: neck supple, trachea midline Cardiac: Positive: Reg Rate and Rhythm, S1/S2 Lungs: Positive: clear to auscultation Neuro: Positive: Grossly Intact Abdomen: Positive: Soft. Negative: Tender Skin: Negative: Rash, Wound Musculoskeletal: No Pain Extremities: Absent: edema Results 01/09/19 00:47 01/09/19 00:47 Coagulation 01/08/19 Range/Units 20:37 PT 12.8 (12.2-14.9) Sec. INR 0.91 (0.87-1.13) APTT 28.0 (24.2-36.6) Sec. Lipids 01/09/19 Range/Units 00:47 Triglycerides 92 (2-149) mg/dL Cholesterol 155 (50-199) mg/dL HDL Cholesterol 69 H (40-59) mg/dL Cholesterol/HDL Ratio 2.24 % CBC 01/08/19 01/09/19 Range/Units 20:37 00:47 WBC 8.4 7.4 (4.5-11.0) K/mm3 RBC 5.01 4.75 (3.65-5.03) M/mm3 Hgb 16.6 H 16.1 H (10.1-14.3) gm/dl Hct 48.5 H 45.7 H (30.3-42.9) % Plt Count 264 247 (140-440) K/mm3 Lymph # 3.0 2.4 (1.2-5.4) K/mm3 [place] # 1.0 H 0.8 (0.0-0.8) K/mm3 Eos # 0.1 0.1 (0.0-0.4) K/mm3 Baso # 0.1 0.1 (0.0-0.1) K/mm3 Comprehensive Metabolic Panel 01/08/19 01/09/19 Range/Units 20:37 00:47 Sodium 137 139 (137-145) mmol/L Potassium 4.5 4.1 (3.6-5.0) mmol/L Chloride 99.0 100.4 (98-107) mmol/L Carbon Dioxide 22 27 (22-30) mmol/L BUN 11 11 (7-17) mg/dL Creatinine 0.6 L 0.6 L (0.7-1.2) mg/dL Glucose 118 H 107 H (65-100) mg/dL Calcium 10.3 H 9.8 (8.4-10.2) mg/dL - Imaging and Cardiology EKG: report reviewed, image reviewed EKG interpretations - Telemetry EKG Rhythm: Sinus Rhythm - EKG Sinus rhythms and dysrhythmias: sinus rhythm Assessment and Plan S/p lexiscan MPI stress test this AM which was negative. Pt's chest pain appears to be pleuritic at times and also suspect GERD. Currently stable cardiac status. Pt may discharge home from cardiology standpoint. Recommend pt follow up in our office with Dr. Gupta within 1-2 weeks of hospital discharge ([phone]). The patient has been seen in conjunction with Dr. Gupta who agrees with the assessment and plan of care. - Patient Problems (1) Chest pain Current Visit: Yes Status: Acute (2) Hypertension Current Visit: Yes Status: Chronic Qualifiers: Hypertension type: essential hypertension Qualified Code(s): I10 - Essential (primary) hypertension
--- NOTE | 2019-01-10 01:44 | Treadmill Report ---
NUCLEAR PERFUSION STUDY REASON FOR STUDY: Chest pressure. IMAGING PROTOCOL: The patient received 10 mCi of Technetium 99m Tetrofosmin for resting image and 28 mCi of Technetium 99m Tetrofosmin for stress imaging. The imaging for the whole procedure was completed 30-90 minutes following the initial injection of Technetium 99m Tetrofosmin. The SPECT imaging in the 180 degree arc was performed in the right anterior oblique projection. Computerized reconstruction of the images was performed for analysis. IMAGING RESULTS: Normal cavity size from stress to rest. Normal distribution of radionuclide in the anterior, inferior, septal, and apical regions. Gated SPECT, EF greater than 65% with no wall motion abnormality. The patient infused Lexiscan with no EKG changes. SUMMARY: 1. Negative Lexiscan EKG. 2. Normal rest and stress myocardial perfusion scan. No significant ischemia. No wall motion abnormality. Gated SPECT, EF greater than 65%. JOB# [id number] YOGI/DEBBI
== END 2019-01-09 16:11 | disposition home or self-care (01) ==
LOC: ED 20:24 → 4A 01-09 00:25
PROVIDERS: ADMIT Internal Medicine; ATTEND Internal Medicine
DX: R07.89 Other chest pain (principal); I95.9 Hypotension, unspecified; E66.01 Morbid (severe) obesity due to excess calories; I10 Essential (primary) hypertension; F17.210 Nicotine dependence, cigarettes, uncomplicated; F10.20 Alcohol dependence, uncomplicated; Z88.8 Allergy status to other drugs, medicaments and biological substances; Z79.82 Long term (current) use of aspirin; Z79.899 Other long term (current) drug therapy
CPT/HCPCS: 36415; 71046; 78452; 80048; 80061; 80307; 83036; 84484; 85025; 85379; 85610; 85730; 93005; 93010; 93017; 96374; 96375; 99284; A9502; G0378; J2405; J2785; J3010

== ENCOUNTER 2019-02-26 08:58 | Outpatient (CLI) | payer MEDICARE ==
[2019-02-26 10:35] LABS: Alanine Aminotransferase 14 units/L (7-56); Albumin 3.8 g/dL (3.9-5); BUN/Creatinine Ratio 15; Blood Urea Nitrogen 9 mg/dL (7-17); Calcium 8.9 mg/dL (8.4-10.2); Hemolysis Index 4
[2019-03-01 13:05] LABS: Vitamin D, 25-OH, D2 42 ng/mL
== END 2019-02-26 08:59 | disposition home or self-care (01) ==
LOC: LAB 08:58
PROVIDERS: ATTEND Internal Medicine
DX: R94.5 Abnormal results of liver function studies (principal); E11.9 Type 2 diabetes mellitus without complications; Z13.21 Encounter for screening for nutritional disorder
CPT/HCPCS: 36415; 80053; 82306; 82607

== ENCOUNTER 2020-06-18 14:19 | Outpatient (CLI) | payer MEDICARE ==
--- NOTE | 2020-06-19 08:20 | Mammography Report ---
DIGITAL SCREENING MAMMOGRAM WITH CAD, 06/19/2020 INDICATION: Routine screening mammography. SCREENING MAMMO TECHNIQUE: Digital bilateral 2D mammography was obtained in the craniocaudal and mediolateral obliq ue projections. This examination was interpreted with the benefit of Computer-Aided Detection analysi s. COMPARISON: 05/31/2014 FINDINGS: Breast Density: There are scattered areas of fibroglandular density. There is no evidence of dominant mass, suspicious calcifications or architectural distortion in eithe r breast. Stable bilateral nodularity. IMPRESSION: Follow up recommendation: Routine yearly BI-RADS Category 2: Benign. A "normal" or negative report should not discourage follow up or biopsy of a clinically significant f inding. A written summary of these findings will be mailed to the patient. The patient will be entered into a mammography reporting system which will generate a reminder letter for the patient's next appointmen t at the appropriate interval. The [employer] recommends yearly mammograms starting at age 40 and continuing as l alia as a woman is in good health. Breast MRI is recommended for women with an approximate 20-25% or greater lifetime risk of breast cancer, including women with a strong family history of breast or ova josé antonio cancer or who have been treated for Hodgkin's disease. Signer Name: Mohan Morris MD Signed: 06/19/2020 8:15 AM Workstation Name: [id number]
== END 2020-06-18 14:20 | disposition home or self-care (01) ==
LOC: MAMMO 14:19
PROVIDERS: ATTEND Internal Medicine
DX: Z12.31 Encounter for screening mammogram for malignant neoplasm of breast (principal)
CPT/HCPCS: 77067

== ENCOUNTER 2020-07-04 08:14 | Day surgery (SDC) | payer MEDICARE ==
[~2020-07-04 08:14] MED LIST: SODIUM CHLORIDE 0.9% 1000 ML 1,000 ML IV SCH
--- NOTE | 2020-07-04 08:55 | Anesthesia Consultation ---
Anesthesia Consult and Med Hx Date of service: 07/04/20 - Airway Anesthetic Teeth Evaluation: Poor ROM Head & Neck: Adequate Mental/Hyoid Distance: Adequate Mallampati Class: Class III Intubation Access Assessment: Possibly Difficult - Pulmonary Exam CTA: Yes - Cardiac Exam Cardiac Exam: RRR - Pre-Operative Health Status ASA Pre-Surgery Classification: ASA3 Proposed Anesthetic Plan: MAC - Pulmonary Hx Smoking: Yes Hx Respiratory Symptoms: Yes (cough 2 wks ago; now mostly resolved; no other associated symptoms) - Cardiovascular System Hx Hypertension: Yes (took antihypertensives this morning) Hx Heart Attack/AMI: No (neg stress test 12/2018, normal EF on TTE 2016) Hx Percutaneous Transluminal Coronary Angioplasty (PTCA): No Hx Cardia Arrhythmia: No Hx Valvular Heart Disease: No - Central Nervous System CVA: No - Gastrointestinal Hx Gastroesophageal Reflux Disease: Yes - Endocrine Hx Renal Disease: No Hx Liver Disease: No Hx Insulin Dependent Diabetes: No Hx Non-Insulin Dependent Diabetes: No Hx Thyroid Disease: No - Other Systems Hx Obesity: Yes (BMI 45)
--- NOTE | 2020-07-04 08:55 | Anesthesia Day of Surgery ---
Anesthesia Day of Surgery - Day of Surgery Patient Examined: Yes Patient H&P Reviewed: Yes Patient is NPO: Yes
[2020-07-04] MEDS ORDERED: SODIUM CHLORIDE 0.9% 1000 ML 1,000 ML ONE (09:02)
[2020-07-04] MEDS ORDERED: propofoL 200 MG/20 ML VIAL IV ONE ×2 (09:47→10:04)
--- NOTE | 2020-07-04 10:38 | Procedure Note ---
Date of procedure: 07/04/20 Pre-op diagnosis: Colon Polyp Screening/ Strong F/H/O Cancer (sister and grandfather) Post-op diagnosis: other (Multiple,small Recto-Sigmoid and Sigmoid Polyps (possibly Hyperplastic)/ Few,Small Scattered Proximal Colon Diverticuli/ Minor,Internal Hemorrhoid) Procedure: Colonoscopy with Cold Biopsy and Snare Polypectomy [place] [facility] [place]: REYMUNDO ORTIZ Estimated blood loss: minimal Pathology: list Specimen disposition: to lab Condition: stable Disposition: same day (Avoid aspirin and NSAID for 5 days; otherwise resume home medication and follow up in 1 to 2 weeks ([phone]).)
--- NOTE | 2020-07-04 11:17 | Operative Report ---
PROCEDURE: Colonoscopy with cold snare polypectomy and cold biopsy. Thank you for the kind referral. INDICATIONS: A 54-year-old slightly obese -[place] female who has a strong family history of cancer. The patient's sister had colon cancer at a relatively young age of 27 and a grandfather also had colon cancer. Colonoscopy was done as part of colon polyp screening. DESCRIPTION OF PROCEDURE: The procedure was done after getting informed consent with MAC anesthesia. Initial rectal exam was unremarkable. Instrument was passed through the rectum onto the cecum, which was identified with ileocecal valve and the appendiceal orifice. Visualization was fair to good. Cecum showed normal mucosa. There were a few scattered diverticula, which were small and noted in the ascending colon, the transverse colon and the descending colon showed normal mucosa. In the rectosigmoid area, there were several small polyps noted, possibly hyperplastic, mostly removed by cold biopsy and 2 removed by snare polypectomy, one from the sigmoid and the other from the rectosigmoid. The rectum showed some minor internal hemorrhoid on the retroverted view. There was minimal bleeding associated with the procedure. No complications associated with the procedure. ASSESSMENT: Colon polyp screening, strong family history of colon cancer. Sister had colon cancer as did grandfather. Multiple small rectosigmoid polyps, possibly hyperplastic, solitary sigmoid polyp, also possibly hyperplastic, removed by cold snare polypectomy and also by cold biopsy and minor internal hemorrhoid, minimal bleeding associated with the procedure. No complications associated with the procedure. PLAN: To have the patient resume previous home medicines except for aspirin and aspirin-related products. Encouraged the patient to take fiber supplements and otherwise resume home medication and follow up in the office in 1-2 weeks' time. The procedure was done in the GI lab with assistance of the GI lab team, which included JEFE, laci Sawyer and with assistance of Anesthesia. JOB# [id number] PANFILO/DEBBI
[2020-07-04 11:23] VITALS: BP 132/76
--- NOTE | 2020-07-04 12:06 | Post Anesthesia Evaluation ---
- Post Anesthesia Evaluation Patient Participated: Yes Airway Patent: Yes Stable Respiratory Function: Yes Nausea/Vomiting: No Temp > 96.8F: Yes Pain Manageable: Yes Adequeate Hydration: Yes Anesthesia Complications: No
== END 2020-07-04 08:15 | disposition home or self-care (01) ==
LOC: GIO 08:14
DX: Z12.11 Encounter for screening for malignant neoplasm of colon (principal); K57.30 Diverticulosis of large intestine without perforation or abscess without bleeding; K64.8 Other hemorrhoids; K62.1 Rectal polyp; K63.5 Polyp of colon; K63.89 Other specified diseases of intestine; F17.210 Nicotine dependence, cigarettes, uncomplicated; I10 Essential (primary) hypertension; E66.9 Obesity, unspecified; K21.9 Gastro-esophageal reflux disease without esophagitis; Z80.0 Family history of malignant neoplasm of digestive organs; Z80.3 Family history of malignant neoplasm of breast; Z98.890 Other specified postprocedural states; Z79.899 Other long term (current) drug therapy; Z79.82 Long term (current) use of aspirin; Z87.01 Personal history of pneumonia (recurrent); Z68.42 Body mass index [BMI] 45.0-49.9, adult
CPT/HCPCS: 45380; 45385; 88305; J2704; J7030

== ENCOUNTER 2021-03-25 16:06 | Observation (INO) | payer MEDICARE ==
[2021-03-25] MEDS ORDERED: ASPIRIN 325 MG TAB PO ONE (16:11)
--- NOTE | 2021-03-25 16:39 | XRay Report ---
CHEST 2 VIEWS 1624 INDICATION / CLINICAL INFORMATION: CHEST PAIN COMPARISON: 01/08/2019 FINDINGS: SUPPORT DEVICES: None. HEART / MEDIASTINUM: No significant abnormality. LUNGS / PLEURA: No significant pulmonary or pleural abnormality. No pneumothorax. ADDITIONAL FINDINGS: No significant additional findings. IMPRESSION: No significant acute abnormality Signer Name: Tutu Dash MD Signed: 03/25/2021 4:32 PM Workstation Name: [id number]
[2021-03-25 19:55] LABS: Hemoglobin 16.5 gm/dl (10.1-14.3); Mean Corpuscular HGB Conc 34 % (30-34); Mean Corpuscular Volume 100 fl (79-97); Platelet Count 314 K/mm3 (140-440); Red Blood Count 4.92 M/mm3 (3.65-5.03); Red Cell Distribution Width 16.7 % (13.2-15.2)
[2021-03-25 20:02] LABS: Alanine Aminotransferase 15 units/L (7-56); Albumin 4.1 g/dL (3.9-5); Blood Urea Nitrogen 10 mg/dL (7-17); Hemolysis Index 35
[2021-03-25 20:15] LABS: BUN/Creatinine Ratio 14
[2021-03-25 20:27] LABS: Total Cells Counted 100
[2021-03-25 20:28] LABS: Platelet Estimate Consistent w Auto; RBC Morphology Normal
--- NOTE | 2021-03-26 02:05 | Emergency Department Report ---
ED Chest Pain HPI - General Chief Complaint: Chest Pain Stated Complaint: CHEST PAIN PUI?: No Time Seen by Provider: 03/26/21 02:01 Source: patient Mode of arrival: Ambulatory Limitations: No Limitations - History of Present Illness Initial Comments: Patient is a 55-year-old female who presents emergency room with complaints of chest pain x1 day. Patient states that her chest pain is worsening. Patient also complains of shortness of breath and nausea. Patient denies vomiting. Patient states the chest pain is in her left chest and radiates to her jaw and and left neck. Patient denies fever and chills. Patient denies abdominal pain. Patient states the chest pain is better with rest. Patient states the chest pain is worse with exertion. Patient states she shortness of breath is better with rest. Patient states shortness of breath is worse with exertion. Patient denies recent travel. Patient denies recent international travel. Patient denies exposure to the novel coronavirus. Patient denies sick contacts. Patient denies fever and chills. Patient denies cough. Patient denies diarrhea. Patient denies coming in contact with anybody with symptoms of the novel coronavirus. MD Complaint: chest pain -: hour(s) Onset: during rest Pain Location: substernal, left chest Pain Radiation: neck Severity: severe Severity scale (0 -10): 10 Quality: sharp Consistency: constant Improves With: rest Worsens With: exertion re: nausea, dyspnea. denies: vomting, diaphoresis Other Symptoms: denies: cough, fever, syncope, rash, acid taste in mouth, leg swelling, palpitations, burping Treatments Prior to Arrival: none Aspirin use within the Past 7 Days: (1) Yes - Related Data On Oral Contraceptives: No Previous Rx's Medication Instructions Recorded Last Taken Type Aspirin [Aspirin BABY CHEW TAB] 81 mg PO QDAY #30 tab.chew 07/08/17 1 Week Ago Rx ~06/27/20 predniSONE 10 mg PO QDAY #5 tab 11/19/17 3 Months Ago Rx ~04/03/20 Albuterol Mdi (or & Nicu Only) 2 puff IH QID PRN #1 inhalation 05/24/18 3 Months Ago Rx [ProAir HFA Inhaler] ~04/03/20 Allergies Allergy/AdvReac Type Severity Reaction Status Date / Time No Known Allergies Allergy Verified 07/28/21 16:08 Heart Score - HEART Score History: Moderately suspicious EKG: Non-specific Age: 45-65 Risk factors: 1-2 risk factors Troponin: < normal limit HEART Score: 4 - EKG Read Time Time EKG Completed: 16:16 EKG Read Time: 16:16 ED Review of Systems ROS: Stated complaint: CHEST PAIN Other details as noted in HPI Constitutional: denies: chills, fever Eyes: denies: eye pain, eye discharge, vision change ENT: denies: ear pain, throat pain Respiratory: see HPI, shortness of breath. denies: cough, wheezing Cardiovascular: as per HPI, chest pain. denies: palpitations Endocrine: no symptoms reported Gastrointestinal: as per HPI, nausea. denies: abdominal pain, diarrhea Genitourinary: denies: urgency, dysuria, discharge Musculoskeletal: denies: back pain, joint swelling, arthralgia Skin: denies: rash, lesions Neurological: denies: headache, weakness, paresthesias Psychiatric: denies: anxiety, depression Hematological/Lymphatic: denies: easy bleeding, easy bruising ED Past Medical Hx - Past Medical History Previous Medical History?: Yes Hx Hypertension: Yes (took antihypertensives this morning) Hx Heart Attack/AMI: No (neg stress test 12/2018, normal EF on TTE 2016) Hx Congestive Heart Failure: No Hx Diabetes: No Hx Liver Disease: No Hx Renal Disease: No Hx Asthma: No Hx COPD: No Additional medical history: menopause, bilateral hearing loss. pt uses hearing aid - Surgical History Past Surgical History?: Yes Additional Surgical History: uterine ablation 04/2010/ KNEE SURGERY - Family History Family history: no significant - Social History Smoking Status: Current Every Day Smoker Substance Use Type: Alcohol - Medications Home Medications: Home Medications Medication Instructions Recorded Confirmed Last Taken Type Aspirin [Aspirin BABY CHEW TAB] 81 mg PO QDAY #30 tab.chew 07/08/17 07/04/20 1 Week Ago Rx ~06/27/20 predniSONE 10 mg PO QDAY #5 tab 11/19/17 07/04/20 3 Months Ago Rx ~04/03/20 Albuterol Mdi (or & Nicu Only) 2 puff IH QID PRN #1 inhalation 05/24/18 07/04/20 3 Months Ago Rx [ProAir HFA Inhaler] ~04/03/20 ED Physical Exam - General Limitations: No Limitations General appearance: alert, in no apparent distress - Head Head exam: Present: atraumatic, normocephalic - Eye Eye exam: Present: normal appearance - ENT ENT exam: Present: mucous membranes moist - Neck Neck exam: Present: normal inspection - Respiratory Respiratory exam: Present: normal lung sounds bilaterally. Absent: respiratory distress - Cardiovascular Cardiovascular Exam: Present: regular rate, normal rhythm. Absent: systolic murmur, diastolic murmur, rubs, gallop - GI/Abdominal GI/Abdominal exam: Present: soft, normal bowel sounds - Extremities Exam Extremities exam: Present: normal inspection - Back Exam Back exam: Present: normal inspection - Neurological Exam Neurological exam: Present: alert, oriented X3 - Psychiatric Psychiatric exam: Present: normal affect, normal mood - Skin Skin exam: Present: warm, dry, intact, normal color. Absent: rash ED Course Vital Signs 03/25/21 16:09 Temperature 97.9 F Pulse Rate 63 Respiratory 20 Rate Blood Pressure 140/83 O2 Sat by Pulse 97 Oximetry - Reevaluation(s) Reevaluation #1: I discussed all results with patient. I discussed plan of care with patient. Diane shanti agrees with plan of care and admission. Patient to be admitted to the hospitalist service. 03/26/21 02:42 - Consultations Consultation #1: Hospitalist consulted for admission. Hospitalist to admit patient. 03/26/21 02:42 ADELINA score - Adelina Score Age > 65: (0) No Aspirin use within the Past 7 Days: (1) Yes 3 or more CAD Risk Factors: (0) No 2 or more Angina events in past 24 hrs: (0) No Known CAD with more than 50% Stenosis: (0) No Elevated Cardiac Markers: (0) No ST Deviation Greater than 0.5mm: (0) No ADELINA Score: 1 ED Medical Decision Making - Lab Data Result diagrams: 03/25/21 19:08 03/25/21 19:08 - EKG Data -: EKG Interpreted by Me EKG shows normal: sinus rhythm, intervals, QRS complexes, ST-T waves Rate: normal - EKG Data Interpretation: other ([place] deviation, inverted T waves) - Radiology Data Radiology results: report reviewed, image reviewed interpreted by me: Chest x-ray: No pneumonia, no pneumothorax, no foreign body, no osseous findings, no acute findings CHEST 2 VIEWS 1624 INDICATION / CLINICAL INFORMATION: CHEST PAIN COMPARISON: 01/08/2019 FINDINGS: SUPPORT DEVICES: None. HEART / MEDIASTINUM: No significant abnormality. LUNGS / PLEURA: No significant pulmonary or pleural abnormality. No pneumothorax. ADDITIONAL FINDINGS: No significant additional findings. IMPRESSION: No significant acute abnormality - Medical Decision Making Patient is a 55-year-old female who presents emergency room with complaints of chest pain, shortness of breath and nausea. Patient had labs done which were essentially unremarkable. Patient's troponin was negative x1. Patient's chest pain started the night prior and radiated to her left neck and jaw. Patient had a chest x-ray done which was negative for acute finding. Patient had an EKG done which was negative for acute findings and showed a normal ST segment. Patient heart score is elevated and equal to 4. Patient will require inpatient rule out. Patient admitted to the hospital service for further evaluation treatment. Critical care time documented due to the multiple reassessments, prolonged time at the bedside, interpretation of diagnostics and labs. - Differential Diagnosis Chest pain, shortness of breath, nausea, ACS, Critical Care Time: Yes Critical care time in (mins) excluding proc time.: 35 Critical care attestation.: If time is entered above; I have spent that time in minutes in the direct care of this critically ill patient, excluding procedure time. Critical Care Time: 35 minutes ED Disposition Clinical Impression: Abnormal EKG Chest pain Qualifiers: Chest pain type: unspecified Qualified Code(s): R07.9 - Chest pain, unspecified Disposition: DC-09 OP ADMIT IP TO THIS HOSP Is pt being admited?: Yes Does the pt Need Aspirin: No Condition: Critical Instructions: Nonspecific Chest Pain, Adult Time of Disposition: 02:42
[2021-03-26] MEDS ORDERED: ONDANSETRON 4 MG/2 ML INJ IV ONE (02:17)
[2021-03-26] MEDS ORDERED: MORPHINE 2 MG/1 ML INJ IV ONE (02:17)
[2021-03-26] MEDS ORDERED: traMADol 50 MG TAB PO PRN (05:54)
[2021-03-26] MEDS ORDERED: MORPHINE 2 MG/1 ML INJ IV PRN (05:54)
[2021-03-26] MEDS ORDERED: ACETAMINOPHEN 325 MG TAB PO PRN (05:54)
[2021-03-26] MEDS ORDERED: NITROGLYCERIN 0.4 MG TAB SUBL SL PRN (05:54)
[2021-03-26] MEDS ORDERED: ALBUTEROL 8.5 GM MDI INHALATION IH PRN (05:56)
[2021-03-26] MEDS ORDERED: HEPARIN 5,000 UNIT/1 ML VIAL SUB-Q SCH (06:00)
[2021-03-26] MEDS ORDERED: SODIUM CHLORIDE 0.9% 1000 ML 1,000 ML IV SCH (06:00)
--- NOTE | 2021-03-26 06:01 | History and Physical Report ---
History of Present Illness Date of examination: 03/26/21 Date of admission: 03/26/21 02:42 Chief complaint: Chest pain History of present illness: 55-year-old female with past medical history of hypertension was brought to the hospital because of chest pain which is left-sided substernal 10/10 sharp constant radiating to the jaw for 1 day .patient also complains of shortness of breath and nausea. Patient denies vomiting. Patient denies fever and chills. Patient denies abdominal pain. Patient states the chest pain is better with rest. Patient states the chest pain is worse with exertion. Patient states she shortness of breath is better with rest. Patient states shortness of breath is worse with exertion. Initial cardiac enzyme is negative. Troponin is 0.010 Past History Past Medical History: hypertension Medications and Allergies Allergies Allergy/AdvReac Type Severity Reaction Status Date / Time No Known Allergies Allergy Verified 03/25/21 16:08 Home Medications Medication Instructions Recorded Confirmed Last Taken Type Aspirin [Aspirin BABY CHEW TAB] 81 mg PO QDAY #30 tab.chew 07/08/17 07/04/20 1 Week Ago Rx ~06/27/20 predniSONE 10 mg PO QDAY #5 tab 11/19/17 07/04/20 3 Months Ago Rx ~04/03/20 Albuterol Mdi (or & Nicu Only) 2 puff IH QID PRN #1 inhalation 05/24/18 07/04/20 3 Months Ago Rx [ProAir HFA Inhaler] ~04/03/20 Active Meds: Active Medications Acetaminophen (Acetaminophen 325 Mg Tab) 650 mg PO Q6H PRN PRN Reason: Pain, Mild (1-3) Albuterol (Albuterol 8.5 Gm Mdi Inhalation) 2 puff IH QID PRN PRN Reason: Shortness Of Breath Aspirin (Aspirin Ec 325 Mg Tab) 325 mg PO QDAY KELLY Atorvastatin Calcium (Atorvastatin 40 Mg Tab) 40 mg PO QHS KELLY Heparin Sodium (Porcine) (Heparin 5,000 Unit/1 Ml Vial) 5,000 unit SUB-Q Q8HR KELLY Sodium Chloride (Nacl 0.9% 1000 Ml) 1,000 mls @ 100 mls/hr IV DIRECT KELLY Morphine Sulfate (Morphine 4 Mg/1 Ml Inj) 2 mg IV Q5MIN PRN PRN Reason: Chest Pain Nitroglycerin (Nitroglycerin 0.4 Mg Tab Subl) 0.4 mg SL Q5M PRN PRN Reason: Chest Pain Pantoprazole Sodium (Pantoprazole 40 Mg Tab) 40 mg PO QDAY KELLY Prednisone (Prednisone 10 Mg Tab) 10 mg PO QDAY KELLY Sodium Chloride (Sodium Chloride 0.9% 10 Ml Flush Syringe) 10 ml IV PRN PRN PRN Reason: LINE FLUSH Tramadol HCl (Tramadol 50 Mg Tab) 50 mg PO Q6H PRN PRN Reason: Pain, Moderate (4-6) Review of Systems Cardiovascular: chest pain, shortness of breath Respiratory: shortness of breath Exam - Constitutional Vitals: Temp Pulse Resp BP Pulse Ox 97.9 F 62 19 118/68 97 03/25/21 16:09 03/26/21 05:00 03/26/21 05:00 03/26/21 05:00 03/26/21 04:00 General appearance: Present: no acute distress, well-nourished - EENT Eyes: Present: PERRL ENT: hearing intact, clear oral mucosa - Neck Neck: Present: supple, normal ROM - Respiratory Respiratory effort: normal Respiratory: bilateral: CTA - Cardiovascular Heart Sounds: Present: S1 & S2. Absent: rub, click - Extremities Extremities: pulses symmetrical, No edema Peripheral Pulses: within normal limits - Abdominal General gastrointestinal: Present: soft, non-tender, non-distended, normal bowel sounds Female genitourinary: Present: normal - Integumentary Integumentary: Present: clear, warm, dry - Musculoskeletal Musculoskeletal: gait normal, strength equal bilaterally - Psychiatric Psychiatric: appropriate mood/affect, intact judgment & insight - Neurologic Neurologic: CNII-XII intact, moves all extremities HEART Score - HEART Score EKG: Non-specific Age: 45-65 Risk factors: 1-2 risk factors Troponin: Troponin T < 0.010 ng/mL (0.00-0.029) 03/26/21 02:43 Troponin: < normal limit Results - Labs CBC & Chem 7: 03/25/21 19:08 03/25/21 19:08 Labs: Laboratory Last Values WBC 6.3 K/mm3 (4.5-11.0) 03/25/21 19:08 RBC 4.92 M/mm3 (3.65-5.03) 03/25/21 19:08 Hgb 16.5 gm/dl (10.1-14.3) H 03/25/21 19:08 Hct 49.0 % (30.3-42.9) H 03/25/21 19:08 MCV 100 fl (79-97) H 03/25/21 19:08 MCH 34 pg (28-32) H 03/25/21 19:08 MCHC 34 % (30-34) 03/25/21 19:08 RDW 16.7 % (13.2-15.2) H 03/25/21 19:08 Plt Count 314 K/mm3 (140-440) 03/25/21 19:08 Add Manual Diff Complete 03/25/21 19:08 Total Counted 100 03/25/21 19:08 Seg Neutrophils % Salesforce Consultant 03/25/21 19:08 Seg Neuts % (Manual) 32.0 % (40.0-70.0) L 03/25/21 19:08 Lymphocytes % (Manual) 58.0 % (13.4-35.0) H 03/25/21 19:08 Monocytes % (Manual) 8.0 % (0.0-7.3) H 03/25/21 19:08 Eosinophils % (Manual) 2.0 % (0.0-4.3) 03/25/21 19:08 Nucleated RBC % Not Reportable 03/25/21 19:08 Seg Neutrophils # Man 2.0 K/mm3 (1.8-7.7) 03/25/21 19:08 Band Neutrophils # 0.0 K/mm3 03/25/21 19:08 Lymphocytes # (Manual) 3.7 K/mm3 (1.2-5.4) 03/25/21 19:08 Abs React Lymphs (Man) 0.0 K/mm3 03/25/21 19:08 Monocytes # (Manual) 0.5 K/mm3 (0.0-0.8) 03/25/21 19:08 Eosinophils # (Manual) 0.1 K/mm3 (0.0-0.4) 03/25/21 19:08 Basophils # (Manual) 0.0 K/mm3 (0.0-0.1) 03/25/21 19:08 Metamyelocytes # 0.0 K/mm3 03/25/21 19:08 Myelocytes # 0.0 K/mm3 03/25/21 19:08 Promyelocytes # 0.0 K/mm3 03/25/21 19:08 Blast Cells # 0.0 K/mm3 03/25/21 19:08 WBC Morphology Not Reportable 03/25/21 19:08 Hypersegmented Neuts Not Reportable 03/25/21 19:08 Hyposegmented Neuts Not Reportable 03/25/21 19:08 Hypogranular Neuts Not Reportable 03/25/21 19:08 Smudge Cells Not Reportable 03/25/21 19:08 Toxic Granulation Not Reportable 03/25/21 19:08 Toxic Vacuolation Not Reportable 03/25/21 19:08 Dohle Bodies Not Reportable 03/25/21 19:08 Pelger-Huet Anomaly Not Reportable 03/25/21 19:08 Refugio Rods Not Reportable 03/25/21 19:08 Platelet Estimate Consistent w auto 03/25/21 19:08 Clumped Platelets Not Reportable 03/25/21 19:08 Plt Clumps, EDTA Not Reportable 03/25/21 19:08 Large Platelets Not Reportable 03/25/21 19:08 Giant Platelets Not Reportable 03/25/21 19:08 Platelet Satelliting Not Reportable 03/25/21 19:08 Plt Morphology Comment Not Reportable 03/25/21 19:08 RBC Morphology Normal 03/25/21 19:08 Dimorphic RBCs Not Reportable 03/25/21 19:08 Polychromasia Not Reportable 03/25/21 19:08 Hypochromasia Not Reportable 03/25/21 19:08 Poikilocytosis Not Reportable 03/25/21 19:08 Anisocytosis Not Reportable 03/25/21 19:08 Microcytosis Not Reportable 03/25/21 19:08 Macrocytosis Not Reportable 03/25/21 19:08 Spherocytes Not Reportable 03/25/21 19:08 Pappenheimer Bodies Not Reportable 03/25/21 19:08 Sickle Cells Not Reportable 03/25/21 19:08 Target Cells Not Reportable 03/25/21 19:08 Tear Drop Cells Not Reportable 03/25/21 19:08 Ovalocytes Not Reportable 03/25/21 19:08 Helmet Cells Not Reportable 03/25/21 19:08 [place] Bodies Not Reportable 03/25/21 19:08 Severy Rings Not Reportable 03/25/21 19:08 Pfeifer Cells Not Reportable 03/25/21 19:08 Bite Cells Not Reportable 03/25/21 19:08 Crenated Cell Not Reportable 03/25/21 19:08 Elliptocytes Not Reportable 03/25/21 19:08 Acanthocytes (Spur) Not Reportable 03/25/21 19:08 Rouleaux Not Reportable 03/25/21 19:08 Hemoglobin C Crystals Not Reportable 03/25/21 19:08 Schistocytes Not Reportable 03/25/21 19:08 Malaria parasites Not Reportable 03/25/21 19:08 Vignesh Bodies Not Reportable 03/25/21 19:08 Hem Pathologist Commnt No 03/25/21 19:08 Sodium 136 mmol/L (137-145) L 03/25/21 19:08 Potassium 4.3 mmol/L (3.6-5.0) 03/25/21 19:08 Chloride 97.8 mmol/L (98-107) L 03/25/21 19:08 Carbon Dioxide 26 mmol/L (22-30) 03/25/21 19:08 Anion Gap 17 mmol/L 03/25/21 19:08 BUN 10 mg/dL (7-17) 03/25/21 19:08 Creatinine 0.7 mg/dL (0.6-1.2) 03/25/21 19:08 Estimated GFR > 60 ml/min 03/25/21 19:08 BUN/Creatinine Ratio 14 % 03/25/21 19:08 Glucose 157 mg/dL (65-100) H 03/25/21 19:08 Calcium 10.0 mg/dL (8.4-10.2) 03/25/21 19:08 Total Bilirubin 0.80 mg/dL (0.1-1.2) 03/25/21 19:08 AST 19 units/L (5-40) 03/25/21 19:08 ALT 15 units/L (7-56) 03/25/21 19:08 Alkaline Phosphatase 129 units/L (35-129) 03/25/21 19:08 Troponin T < 0.010 ng/mL (0.00-0.029) 03/26/21 02:43 Total Protein 7.4 g/dL (6.3-8.2) 03/25/21 19:08 Albumin 4.1 g/dL (3.9-5) 03/25/21 19:08 Albumin/Globulin Ratio 1.2 % 03/25/21 19:08 - Imaging and Cardiology Chest x-ray: report reviewed Assessment and Plan VTE prophylaxis?: Chemical Plan of care discussed with patient/family: Yes - Patient Problems (1) Acute coronary syndrome Current Visit: Yes Status: Acute Plan to address problem: Admit the patient to the medical telemetry. Aspirin 325 mg p.o. daily. Lipitor 40 mg p.o. daily. Nitroglycerin as needed. We will do the serial cardiac enzyme. We also do a Lexiscan. Consult cardiology if needed. Heparin 5000 units subcu every 8 hours (2) Abnormal EKG Current Visit: Yes Status: Acute Plan to address problem: Aspirin 325 mg p.o. daily. Lipitor 40 mg p.o. daily. Nitroglycerin as needed. We will do the serial cardiac enzyme. We also do a Lexiscan. Consult cardiology if needed. Heparin 5000 units subcu every 8 hours (3) Hypertension Current Visit: No Status: Chronic Plan to address problem: Hydralazine 10 mg IV every 6 hours as needed. We continue the home medication. We will monitor the blood pressure closely (4) DVT prophylaxis Current Visit: Yes Status: Acute Plan to address problem: Heparin 5000 units subcu every 8 hours for DVT prophylaxis. Protonix 40 mg p.o. daily for GI prophylaxis. Patient is a full code
[2021-03-26] MEDS ORDERED: ALBUTEROL 2.5 MG/3 ML NEBU IH PRN (06:07)
[2021-03-26] MEDS ORDERED: REGADENOSON 0.4 MG/5 ML INJ IV ONE ×2 (08:17→08:19)
[2021-03-26] MEDS ORDERED: predniSONE 10 MG TAB PO SCH (10:00)
[2021-03-26] MEDS ORDERED: PANTOPRAZOLE 40 MG TAB PO SCH (10:00)
--- NOTE | 2021-03-26 10:58 | Nuclear Medicine Report ---
APPROVED REPORT Exam: Nuclear Stress Test Indication: Chest pain Ht: 5 ft 2 in Wt: 238 lbs BSA: 2.06 m2 HR: 55 bpmBP: 120/79 mmHgBMI: 43.52 Rhythm: Sinus Bradycardia Stress Test Details Stress Test: Pharmacologic stress testing performed using 0.4 mg of regadenoson per 5 mL given IV over 10 seconds. HR Resting HR: 55 bpm Max HR Achieved: 103 bpm Max Heart Rate (APMHR): 166 bpm Target HR (85% APMHR): 141 bpm % of APMHR: 62 Recovery HR: 71 bpm HR response to stress: Normal HR response to stress BP Resting BP: 120/79 mmHg Max BP: 132/81 mmHg Recovery BP: 113/76 mmHg BP response to stress: Normal blood pressure response to stress. ECG Resting ECG: Sinus Bradycardia with T wave changes in inferior and anterior leads. Stress ECG: S.R ST Change: None Arrhythmia: None Recovery ECG: Sinus Rhythm Recovery ST Change: None Recovery Arrhythmia: None Clinical Reason for Termination: Completed protocol Stress Symptoms: Dizziness Stress ECG Conclusion Baseline EKG showed S.B with T wave changes in inferior and anterior leads.With iv Lexiscan injection,no ST changes noted to suggest ischemia,no arrhythmia noted. NM EXAM: Myocardial Perfusion REST/STRESS Imaging Protocol: Rest Tc-99m/Stress Tc-99m 1 day Resting Data Rest SPECT myocardial perfusion imaging was performed in supine position 45 minutes following the intravenous injection of 10 mCi of Tc-99m Myoview. Time of rest injection: 0645 Pharmacologic Stress Pharmacologic stress test was performed by injecting Regadenoson 0.4 mg IV push followed by the intravenous injection of 28 mCi of Tc-99m Myoview. Time of stress injection: 0829 Gated Stress SPECT was performed 30 minutes after stress injection. The images were gated to evaluate regional wall motion and calculate left ventricular ejection fraction. Study Data TID = 1.07. Perfusion Wall Motion Normal left ventricular size and function with no regional wall motion abnormalities.Post vasodilation LVEF was noted to be 63%. Nuclear Conclusion ECG Findings: negative for ischemia Clinical Findings: negative for ischemia Nuclear Findings: negative for ischemia Left Ventricular Function: normal Risk Study: low Normal study. No scintigraphic evidence for myocardial ischemia or scar. No prior study available for comparison. Conclusion Baseline EKG showed S.B with T wave changes in inferior and anterior leads.With iv Lexiscan injection,no ST changes noted to suggest ischemia,no arrhythmia noted.
[2021-03-26 11:30] LABS: Basophils % (Auto) 0.5 % (0.0-1.8); Eosinophils # (Auto) 0.2 K/mm3 (0.0-0.4); Hematocrit 45.3 % (30.3-42.9); Hemoglobin 15.3 gm/dl (10.1-14.3); Lymphocytes # (Auto) 3.6 K/mm3 (1.2-5.4); Lymphocytes % (Auto) 46.9 % (13.4-35.0); Mean Corpuscular HGB Conc 34 % (30-34); Mean Corpuscular Volume 100 fl (79-97); Monocytes # (Auto) 0.8 K/mm3 (0.0-0.8); Monocytes % (Auto) 10.3 % (0.0-7.3); Platelet Count 282 K/mm3 (140-440); Red Blood Count 4.53 M/mm3 (3.65-5.03); Red Cell Distribution Width 16.7 % (13.2-15.2)
--- NOTE | 2021-03-26 11:48 | Discharge Summary ---
Providers - Providers Date of Admission: 03/26/21 02:42 Date of discharge: 03/26/21 Attending physician: BROOKS SAEZ MD 03/26/21 Consult to Cardiac Rehabilitation [CONS] Routine Reason For Exam: Phase I Primary care physician: DIET SUPERVISOR Hospitalization Reason for admission: Chest pain Condition: Stable Hospital course: History of present illness: 55-year-old female with past medical history of hypertension was brought to the hospital because of chest pain which is left-sided substernal 10/10 sharp constant radiating to the jaw for 1 day .patient also complains of shortness of breath and nausea. Patient denies vomiting. Patient denies fever and chills. Patient denies abdominal pain. Patient states the chest pain is better with rest. Patient states the chest pain is worse with exertion. Patient states she shortness of breath is better with rest. Patient states shortness of breath is worse with exertion. Initial cardiac enzyme is negative. Troponin is 0.010. Hospital course Serial cardiac enzymes are negative, pain subsided. Stress test was done and negative for acute ischemia. Patient states she is feeling well and discharged home in a stable condition. Patient is morbidly obese and and counseled about lifestyle modifications. Disposition: DC-01 TO HOME OR SELFCARE Final Discharge Diagnosis (Prints w/discharge instructions): Chest pain, costochondritis. Morbid obesity Time spent for discharge: 25-minutes - Discharge Diagnoses (1) Chest pain Status: Acute Qualifiers: Chest pain type: unspecified Qualified Code(s): R07.9 - Chest pain, unspecified Comment: Noncardiogenic secondary to coughing from smoking bronchitis. We'll treat with cough syrup Hycodan. Core Measure Documentation - Palliative Care Palliative Care/ Comfort Measures: Not Applicable - Core Measures Any of the following diagnoses?: none Exam - Physical Exam Narrative exam: Not in cardiopulmonary distress. The patient is morbidly obese. Vital signs as documented. Head exam is unremarkable. No scleral icterus . Neck is without jugular venous distension, thyromegaly, or carotid bruits. Lungs are clear to auscultation. Cardiac exam reveals regular rate and Rhythm. Abdominal exam reveals normal bowel sounds, nontender, no organomegaly. Extremities are nonedematous and both femoral and pedal pulses are normal. LEAD LEVEL DESIGNER: Alert and oriented 3. No focal weakness. - Constitutional Vitals: Temp Pulse Resp BP Pulse Ox 97.9 F 62 19 118/78 97 03/25/21 16:09 03/26/21 05:00 03/26/21 05:00 03/26/21 10:00 03/26/21 10:00 Plan Activity: no restrictions Weight Bearing Status: Full Weight Bearing Diet: regular Follow up with: PRIMARY CARE, [Primary Care Provider] - 7 Days Prescriptions: Pantoprazole [Protonix TAB] 40 mg PO QDAY #30 tablet
[2021-03-26 11:57] LABS: Blood Urea Nitrogen 11 mg/dL (7-17); Calcium 9.8 mg/dL (8.4-10.2); Hemolysis Index 13
[2021-03-26 12:07] LABS: BUN/Creatinine Ratio 16
[2021-03-26 13:11] VITALS: BP 108/75
[2021-03-27] MEDS ORDERED: ASPIRIN EC 325 MG TAB PO SCH (10:00)
--- NOTE | 2021-03-27 17:36 | Electrocardiograph Report ---
[facility] Test Date: 2021-03-25 Test Time: 16:16:03 Pat Name: SULLY FINK Department: Room: [place] [address] Gender: F Manager Requirements: DONALDO : 1965 Requested By: VAZQUEZ QUIROZ Order Number: [id number] Reading MD: Lizandro Calvillo Measurements Intervals [place] Rate: 60 P: 73 OR: 163 QRS: -42 QRSD: 89 T: QT: 490 QTc: 492 Interpretive Statements Sinus rhythm Probable left atrial enlargement Left axis deviation Low voltage, extremity and precordial leads Nonspecific T abnrm, anterolateral leads No previous ECG available for comparison Electronically Signed On 03-27-2021 17:36:13 EDT by Lizandro Calvillo
--- NOTE | 2021-03-27 17:47 | Electrocardiograph Report ---
[facility] Test Date: 2021-03-26 Test Time: 09:08:25 Pat Name: SULLY FINK Department: Room: [place] [address] Gender: F Mailing Section Clerk: KIP : [id number] Requested By: MARTINEZ CH Order Number: [id number] Reading MD: Lizandro Calvillo Measurements Intervals [place] Rate: 52 P: 57 SD: 172 QRS: -17 QRSD: 104 T: -64 QT: 556 QTc: 519 Interpretive Statements Sinus rhythm Abnrm T, consider ischemia, anterolateral lds Prolonged QT interval Compared to ECG 03/25/2021 16:16:03 Possible ischemia now present Prolonged QT interval now present Left-axis deviation no longer present Electronically Signed On 03-27-2021 17:46:44 EDT by Lizandro Calvillo
== END 2021-03-26 13:40 | disposition home or self-care (01) ==
LOC: ED 16:06 → 4A 03-26 02:42 → 3A 03-26 06:05
PROVIDERS: ADMIT Hospitalist; ATTEND Internal Medicine
DX: I24.9 Acute ischemic heart disease, unspecified (principal); I10 Essential (primary) hypertension; R94.31 Abnormal electrocardiogram [ECG] [EKG]; F17.210 Nicotine dependence, cigarettes, uncomplicated; Z79.82 Long term (current) use of aspirin; Z79.899 Other long term (current) drug therapy; Z98.890 Other specified postprocedural states
CPT/HCPCS: 36415; 71046; 78452; 80048; 80053; 84484; 85025; 93005; 93017; 96372; 96374; 96375; 99291; A9502; G0378; J1644; J2270; J2405; J2785; 85007

== ENCOUNTER 2021-12-23 13:03 | Outpatient (CLI) | payer MEDICARE ==
--- NOTE | 2021-12-23 15:04 | Vascular Lab Report ---
DUPLEX DOPPLER LOWER EXTREMITY VEINS, BILATERAL INDICATION / CLINICAL INFORMATION: R60.9 EDEMA,UNSPECIFIED. TECHNIQUE: Duplex doppler imaging was performed through the veins of both lower extremities using bill ous compression and other maneuvers. COMPARISON: None available. FINDINGS: RIGHT COMMON FEMORAL VEIN: Negative. RIGHT FEMORAL VEIN: Negative. RIGHT POPLITEAL VEIN: Negative. RIGHT CALF VEINS: Negative. LEFT COMMON FEMORAL VEIN: Negative. LEFT FEMORAL VEIN: Negative. LEFT POPLITEAL VEIN: Negative. LEFT CALF VEINS: Negative. ADDITIONAL FINDINGS: Small right knee effusion. Moderate left knee effusion. IMPRESSION: 1. No sonographic evidence for DVT in either lower extremity. 2. Small right and moderate left knee effusions visualized. Scribed by: Jesusita Curry RDMS, DONATOT, ESME Scribed: 12/23/2021 1:27 PM I have reviewed the images, agree with this report, and edited this report as needed. Signer Name: Kenny Lee MD Signed: 12/23/2021 2:52 PM Workstation Name: [id number]
== END 2021-12-23 13:04 | disposition home or self-care (01) ==
LOC: VAS 13:03
PROVIDERS: ATTEND Internal Medicine
DX: M25.462 Effusion, left knee (principal); M25.461 Effusion, right knee; R60.9 Edema, unspecified
CPT/HCPCS: 93970

== ENCOUNTER 2022-04-15 09:18 | Outpatient (CLI) | payer MEDICARE | END 2022-04-15 09:19 | disposition home or self-care (01) | LOC: LABHHL 09:18 | PROVIDERS: ATTEND Internal Medicine | DX: E11.9 Type 2 diabetes mellitus without complications (principal) | CPT/HCPCS: 36415; 83036 ==